=== PATIENT | male | born 1940 | race Caucasian/White ===

== ENCOUNTER 2017-11-12 09:13 | Day surgery (SDC) | payer MEDICARE, OTHER, SELFPAY ==
[2017-10-31 12:46] VITALS: BMI 21.5
[2017-11-12] VITALS (9 sets, daily range): BP systolic 101–133; BP diastolic 58–76; PULSE 64–121; RESP 11–16; TEMP 36.1–36.5; O2SAT 96–99; BMI 21.5
[2017-11-12] MEDS: LACTATED RINGERS 1,000 ML 42 ML IV (09:55)
[2017-11-12] MEDS: CEFAZOLIN 2 GM/100 ML FROZ.PIGGY IV (10:19)
--- NOTE | 2017-11-12 10:29 | PM.PREOP ---
Pre-operative Note Interval Note Pre-op Check: Yes History & Physical Reviewed by Physician Changes: No
--- NOTE | 2017-11-12 10:44 | SUR.OPER ---
Supine on padded OR bed, head on pillow, arms secured on padded arm boards at <90 degrees abduction, legs uncrossed, safety belt at thigh, tape over blanket over lower legs.
[2017-11-12] MEDS: BUPIVACAINE 0.5% (PF) VIAL 30 ML INJ (10:52)
[2017-11-12] MEDS: LIDOCAINE 1% W/EPI INJ 20 ML INJ (10:52)
[2017-11-12] MEDS: SODIUM CHLORIDE IRRIG SOLUTION 250 ML, CEFAZOLIN VIAL 1 GM IRR (10:52)
--- NOTE | 2017-11-12 11:23 | PM.OP.1 ---
Operative Date/Time/Diagnoses Date of procedure: 11/12/17 Time of procedure: 11:23 Pre-op diagnosis: Large right inguinal hernia Post-op diagnosis: same Procedure & Clinicians Procedure: Right inguinal hernia repair Same procedure as scheduled: Yes Indications: Large right inguinal hernia descending into the right scrotum Surgeon: Missy Esqueda Click Yes if Unassisted: Yes Anesthesia Type: General (Emanuel) and Local Operative Notes Findings: Large indirect right inguinal hernia Closure Type: primary Specimen(s): none sent Applied: implant(s) (Large Pro Loop plug and patch mesh implant) Estimated Blood Loss (mL): 10 Procedure in detail: After obtaining informed consent the patient was brought to the operating room and placed in the supine position on the operating table. Following successful induction of general endotracheal anesthesia, appropriate padding of all bony prominences, and a placement of appropriate monitors, the left groin is prepped and draped in a standard surgical fashion. A timeout was held per protocol. We began the procedure by infiltrating a mixture of local anesthetics medial to the anterior superior iliac spine on the right. Following this, an incision was fashioned in the right groin superior and lateral to the left pubic tubercle. This area was infiltrated with local anesthetic to create a field block. A skin incision was created here and carried down through the skin and subcutaneous tissue to reveal Aditi's fascia below. Aditi's fascia was divided sharply revealing the external oblique aponeurosis below. More local anesthetic was infiltrated in the aponeurosis and it was opened in the direction of its fibers. The spermatic cord and its contents were surrounded and retracted gently using a Weskan drain. The hernia sac was identified in the superior medial position and carefully dissected free from the cord structures. This was carefully placed back into the abdominal cavity without injury. A large portion of PROloop mesh was chosen for the repair. The plug was soaked in Ancef solution and deployed into the defect in the internal ring. This was sewn into place with interrupted Vicryl sutures in 2 positions. The overlying mesh layer was sewn to the pubic tubercle with an air knot of Vicryl suture. The lateral leaflets were then carefully placed around the spermatic cord and sewn together with another suture. Tags of the overlying mesh were then tucked under the external oblique aponeurosis. The wound was checked for hemostasis and irrigated with Ancef-containing solution. The edges of the external oblique aponeurosis were approximated and closed with a running Vicryl suture. The wound was irrigated once again and Aditi's fascia was closed with a running suture. Monocryl sutures were placed in the skin. All sponge, needle, and instrument counts were correct at the conclusion of the case. The patient was allowed to awaken from anesthesia without difficulty and taken to the post anesthesia care unit in good condition. Complications: none Condition: stable Disposition: PACU Plan for aftercare: 1. Discharge to home 2. Follow up with me in 2 week
--- NOTE | 2017-11-12 12:07 | SUR.PHASEI ---
dr luu aware of irregular hr. no new orders recieved. pt instructed to follow up with pcp. made aware as well.
--- NOTE | 2017-11-12 12:20 | SUR.PHASEII ---
and daughter brought in to see pt, given prescription went to pharmacy to fill. incision remains intacct with ice pack in plae.
--- NOTE | 2017-11-12 14:27 | SUR.PHASEII ---
1300 Pt sat on the side of the stretcher. Denied dizziness or feeling light headed. Pt left to dress independently. Then patient found kneeling on the floor. Patient reported right leg was weak and gave out. Denied feeling light headed or dizzy. Small area of peeled, superficial skin loss to Rt. knee. Pt assisted back to bed. Dr. Esqueda called in her office and notified of patient's status. Pt to go to the ER per Dr. Esqueda. Pt notified and agreeable to transfer to the ER. Transferred by stretcher, report given in ER. Pt's belongings bag with patient. Patient's family notified regarding fall and transfer to the ER.
== END 2017-11-12 13:15 | disposition home or self-care (01) ==
PROVIDERS: PCP Family Medicine; Visit Provider Surgery
PROC: (CPT 49505; principal; 2017-11-12 10:45)
DX: K40.90 Unilateral inguinal hernia, without obstruction or gangrene, not specified as recurrent (principal); F17.210 Nicotine dependence, cigarettes, uncomplicated; I10 Essential (primary) hypertension; E78.5 Hyperlipidemia, unspecified
CPT/HCPCS: 49505; 36591; 71045; 80053; 82550; 82553; 83690; 84484; 85025; 85610; 85730; 93005; 93010; 93041; 99283; C1781; J0690; J2405; J2704; J3010

== ENCOUNTER 2017-11-12 13:29 | Emergency (ER) | payer MEDICARE, OTHER, SELFPAY ==
[2017-11-12 13:30] VITALS: BP 118/72; PULSE 69; RESP 11; TEMP 37; O2SAT 100
--- NOTE | 2017-11-12 13:35 | DI.RAD.S_ITS ---
PROCEDURE: XR CHEST 1V INDICATIONS: chest pain TECHNIQUE: One view of the chest was acquired. COMPARISON: None. FINDINGS: Surgical changes and devices: None. Lungs and pleura: No pleural effusions or pneumothorax. Lungs are clear. Mediastinum: Large hiatal hernia. Mediastinal contours otherwise appear normal. Heart size is normal. Bones and chest wall: No suspicious bony lesions. Overlying soft tissues appear unremarkable. IMPRESSION: Large hiatal hernia. Dictated by: Angie He M.D. on 11/12/2017 at 13:55 Approved by: Angie He M.D. on 11/12/2017 at 13:55
--- NOTE | 2017-11-12 13:40 | ED.WEAKNESS ---
HPI - Weakness General Chief complaint: Weakness Stated complaint: AFIB Time Seen by Provider: 11/12/17 13:35 Source: patient Mode of arrival: ambulatory Limitations: no limitations History of Present Illness HPI Narrative: Patient is a 77-year-old male who presents all from postop. He had an outpatient right inguinal hernia repair today. At the time of discharge his IV was pulled and he went to stand up and he could not put weight on his right leg. The noticed that he was in and out of AFib he has no history of atrial fibrillation. He has no chest pain no heart palpitations shortness of breath. He says that his right leg feels numb. Although he is able to move his toes and bend his knee. MD Complaint: numbness (Right leg) Related Data Home Medications Medication Instructions Recorded Confirmed [id number]-ummpnto-min 1 tab PO DAILY 10/30/17 11/12/17 3,300 unit-5 mg-200mg-75 unit tablet ER Previous Rx's Medication Instructions Recorded aspirin 81 mg tablet,delayed 81 mg PO DAILY #90 tab 07/29/17 release losartan 100 mg tablet 100 mg PO QDAY #90 tab 07/29/17 omega-3 fatty acids 1,000 mg 1,000 mg PO DAILY #30 cap 07/29/17 capsule oxycodone-acetaminophen 1 tab PO Q3H PRN #20 tab MDD 6 11/12/17 Allergies Allergy/AdvReac Type Severity Reaction Status Date / Time venom-honey bee Allergy Severe swelling Verified 11/12/17 14:01 [bee venom (honey bee)] at side Review of Systems Review of Systems All systems reviewed & are unremarkable except as noted in HPI and below Constitutional Denies chills, Denies fever(s), Denies lethargy and Denies weakness Cardiovascular Reports as per HPI, Denies dyspnea and Denies dyspnea on exertion Respiratory Denies cough, Denies dyspnea, Denies dyspnea on exertion and Denies wheezing Gastrointestinal Gastrointestinal: Reports as per HPI, Denies abdominal pain, Denies change in bowel habits, Denies diarrhea, Denies nausea and Denies vomiting Musculoskeletal Reports system reviewed and no additional complaints, except as docu Integumentary/Breasts Denies pruritus, Denies erythema, Denies rash and Denies wounds Neurologic Reports lack of coordination, Denies seizure-like activity and Denies weakness Allergic/Immunologic Denies wheezing [facility] Medical History Right inguinal hernia (Chronic) Essential hypertension (Chronic 01/26/15) Mixed hyperlipidemia (Chronic 01/26/15) Hyperlipidemia (Chronic ~2009) Hypertension (Chronic ~2009) Surgical History S/P hernia repair (Chronic) H/O left inguinal hernia repair (Acute) H/O right inguinal hernia repair (Acute) History of colonoscopy (Acute) Social History marital status: household members: spouse Smoking Status: Current every day smoker alcohol intake: current substance use type: does not use Exam Initial Vital Signs Initial Vital Signs: Vital Signs Temperature 98.6 F 11/12/17 13:30 Pulse Rate 69 11/12/17 13:30 Respiratory Rate 11 L 11/12/17 13:30 Blood Pressure 118/72 11/12/17 13:30 Pulse Oximetry 100 11/12/17 13:30 GENERAL: Alert well-appearing elderly male in no acute distress HEENT: Head atraumatic,EOMI, pupils reactive, CARDIOVASCULAR: Regular rate and rhythm without murmurs, rubs or gallops. RESPIRATORY: Breath sounds equal bilaterally, no wheezes rales or rhonchi. ABDOMEN: Soft, nontender. Normoactive bowel sounds all 4 quadrants. No guarding or rebound. Incision right groin is closed no erythema no drainage no sign of infection EXTREMITIES: Normal range of motion, no clubbing or edema. Neurovascularly intact. Strong right femoral pulse good right distal pedal pulse. He does obviously have some weakness and unable to lift his right leg up off the gurney. The left leg is strong. He says that it feels numb. NEUROLOGICAL: Alert and oriented x4.Normal gait and speech. Cranial nerves II through XII grossly intact. SKIN: Warm, dry, no laceration, no petechiae, no rashes or lesions. Course Orders Ordered: ED Orders 11/12/17 13:35 XR chest 1V Stat Complete Blood Count AUTO DIFF Stat Comprehensive Metabolic Panel Stat Lipase Stat Partial Thromboplastin Time Stat Prothrombin Time INR Stat Troponin & CK Cardiac Panel Stat Vital Signs - 8 hr 11/12/17 13:30 Temperature 98.6 F Pulse Rate 69 Respiratory Rate 11 L Blood Pressure 118/72 Pulse Oximetry 100 MDM - Weakness Lab Data Attestation: I reviewed the patient's lab results. Result diagrams: 11/12/17 13:29 11/12/17 13:29 Lab Results 11/12/17 11/12/17 11/12/17 Range/Units 13:29 13:29 13:29 WBC 8.6 (4.5-11.0) X10^3/uL RBC 3.75 L (4.5-5.9) X10^6/uL Hgb 12.8 L (13.5-17.5) g/dL Hct 38.2 L (41-53) % MCV 102.0 H (80-100) fL MCH 34.1 H (26-34) PG MCHC 33.4 (30-36) % RDW 14.5 (11.6-14.8) % Plt Count 192 (150-400) X10^3/uL Neut % (Auto) 70.0 (50-75) % Lymph % (Auto) 18.3 L (25-40) % [place] % (Auto) 10.1 (3-14) % Eos % (Auto) 1.0 L (2-4) % Baso % (Auto) 0.6 (0-2) % Neut # (Auto) 6000 H (9028-1015) /uL PT 11.6 (10.1-12.7) SECONDS INR 1.1 (0.9-1.3) APTT 30 (26.4-36.2) SECONDS Sodium 142 (137-145) mmol/L Potassium 4.1 (3.4-5.1) mmol/L Chloride 105 (98-107) mmol/L Carbon Dioxide 26 (22-32) mmol/L BUN 21 H (9-20) mg/dL Creatinine 1.10 (0.66-1.25) mg/dL Estimated GFR > 60.0 (>60) mL/min BUN/Creatinine Ratio 19.1 (6-22) Glucose 119 H (80-110) mg/dL Calcium 9.4 (8.4-10.2) mg/dL Total Bilirubin 0.5 (0.2-1.3) mg/dL AST 29 (17-59) IU/L ALT 22 (21-72) IU/L Alkaline Phosphatase 86 (38-126) U/L Total Creatine Kinase 64 (55-170) U/L Troponin I < 0.012 (0.01-0.034) ng/mL Total Protein 7.6 (6.3-8.2) g/dL Albumin 4.2 (3.5-5.0) g/dL Globulin 3.4 (1.7-4.1) g/dL Albumin/Globulin Ratio 1.2 (1.0-2.8) Lipase 95 (23-300) U/L Imaging Data Chest x-ray: Radiologist's impression: PROCEDURE: XR CHEST 1V INDICATIONS: chest pain TECHNIQUE: One view of the chest was acquired. COMPARISON: None. FINDINGS: Surgical changes and devices: None. Lungs and pleura: No pleural effusions or pneumothorax. Lungs are clear. Mediastinum: Large hiatal hernia. Mediastinal contours otherwise appear normal. Heart size is normal. Bones and chest wall: No suspicious bony lesions. Overlying soft tissues appear unremarkable. IMPRESSION: Large hiatal hernia. Dictated by: Angie He M.D. on 11/12/2017 at 13:55 ECG Data Attestation: I personally reviewed and interpreted this ECG as follows: Prior ECG tracings: not available for review Interpretation: Normal sinus rhythm rate [address] changes normal intervals MDM Narrative Medical decision making narrative: I have discussed case with Dr. Mukherjee he states that she did use a a lot of all local anesthesia right in the area. Likely that is why his leg is numb. His it should wear off the next couple of hours, this is normal postoperative. There able to get home and into the house safely they recommend resting until it wears off. I have discussed all of this with patient and patient's family. They have a wheelchair and they are able to get him home safely. All questions have been addressed I feel ready and able to go home. 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 This can last for a couple of hours, lay in bed or stay sitting *Continue to take medications as directed *Follow up with your primary care provider in 2-3 days, follow surgery instructions *Return to ER if you should have any new, worsening or concerning symptoms Prescriptions: No Action omega-3 fatty acids [Fish Oil Concentrate] 1,000 mg capsule 1,000 mg PO DAILY Qty: 30 RF: 0 losartan 100 mg tablet 100 mg PO QDAY Qty: 90 RF: 3 aspirin [Adult Low Dose Aspirin] 81 mg tablet,delayed release (DR/EC) 81 mg PO DAILY Qty: 90 RF: 0 [id number]-R-zztses-fpvsxfj-min [ICaps] [id number],431-9-191-75 kyab-pb-om-unit tablet extended release 1 tab PO DAILY RF: 0 oxycodone-acetaminophen 5-325 mg tablet 1 tab PO Q3H MDD 6 PRN (Reason: pain) Qty: 20 RF: 0 Referrals: Adolfo Copeland MD [Primary Care Provider] - Missy Esqueda MD [Physician] -
[2017-11-12 13:45] LABS: Add Manual Diff / Slide Review NO; Basophils Percent Auto 0.6 % (0-2); Hematocrit 38.2 % (41-53); Hemoglobin 12.8 g/dL (13.5-17.5); Lymphocytes Percent Auto 18.3 % (25-40); Mean Corpuscular HGB Conc 33.4 % (30-36); Mean Corpuscular Hemoglobin 34.1 PG (26-34); Monocytes Percent Auto 10.1 % (3-14); Neutrophils Absolute Auto 6000 /uL (3000-5900); Platelet Count 192 X10^3/uL (150-400); Red Blood Cell Count 3.75 X10^6/uL (4.5-5.9); Red Cell Distribution Width 14.5 % (11.6-14.8); White Blood Cell Count 8.6 X10^3/uL (4.5-11.0)
[2017-11-12 13:57] LABS: INR 1.1 (0.9-1.3); Prothrombin Time 11.6 SECONDS (10.1-12.7)
[2017-11-12 14:00] LABS: PTT Partial Thromboplastin Tim 30 SECONDS (26.4-36.2)
[2017-11-12 14:01] LABS: Alanine Aminotransferase 22 IU/L (21-72); Albumin 4.2 g/dL (3.5-5.0); Albumin Globulin Ratio 1.2 (1.0-2.8); Alkaline Phosphatase 86 U/L (38-126); Aspartate Aminotransferase 29 IU/L (17-59); BUN Creatinine Ratio 19.1 (6-22); Bilirubin Total 0.5 mg/dL (0.2-1.3); Blood Urea Nitrogen 21 mg/dL (9-20); Calcium 9.4 mg/dL (8.4-10.2); Carbon Dioxide 26 mmol/L (22-32); Chloride 105 mmol/L (98-107); Creatine Kinase 64 U/L (55-170); Estimated Glomerular Filt Rate > 60.0 mL/min (>60); Globulin 3.4 g/dL (1.7-4.1); Glucose 119 mg/dL (80-110); HEMOLYSIS < 15 (0-50); Lipase 95 U/L (23-300); Potassium 4.1 mmol/L (3.4-5.1); Sodium 142 mmol/L (137-145); Total Protein 7.6 g/dL (6.3-8.2)
[2017-11-12 14:15] LABS: Troponin I < 0.012 ng/mL (0.01-0.034)
[2017-11-12 14:34] VITALS: BP 113/67; RESP 12
== END 2017-11-12 14:53 | disposition home or self-care (01) ==
PROVIDERS: Emergency Provider Emergency Medicine; PCP Family Medicine
DX: R53.1 Weakness (principal)
CPT/HCPCS: 36591; 71045; 80053; 82550; 82553; 83690; 84484; 85025; 85610; 85730; 93041; 99283

== ENCOUNTER → 2018-09-25 09:01 | Outpatient (CLI) | payer MEDICARE, OTHER, SELFPAY ==
[2018-09-25 10:09] LABS: Alanine Aminotransferase 20 IU/L (21-72); Albumin Globulin Ratio 1.3 (1.0-2.8); Alkaline Phosphatase 92 U/L (38-126); Aspartate Aminotransferase 34 IU/L (17-59); BUN Creatinine Ratio 22.7 (6-22); Bilirubin Total 0.8 mg/dL (0.2-1.3); Blood Urea Nitrogen 25 mg/dL (9-20); Calcium 9.4 mg/dL (8.4-10.2); Carbon Dioxide 22 mmol/L (22-32); Chloride 110 mmol/L (98-107); Cholesterol 204 mg/dL (140-199); Estimated Glomerular Filt Rate > 60.0 mL/min (>60); Globulin 3.2 g/dL (1.7-4.1); Glucose 96 mg/dL (80-110); HDL Cholesterol 48 mg/dL (40-60); HEMOLYSIS 20 (0-50); LDL Cholesterol Calculated 138 mg/dL (<100); Potassium 4.4 mmol/L (3.4-5.1); Sodium 139 mmol/L (137-145); Total Protein 7.2 g/dL (6.3-8.2); Triglycerides 91 mg/dL (35-150)
[2018-09-25 12:26] LABS: Creatinine Urine Random 135.5 mg/dL
[2018-09-25 12:33] LABS: Microalbumi Creatinin Ratio Ur 16.9 ug/mg CR (<30); Microalbumin Urine Random 2.3 mg/dL (0-1.6)
== END ==
PROVIDERS: PCP Physician Assistant; Visit Provider Physician Assistant
DX: E78.2 Mixed hyperlipidemia (principal); I10 Essential (primary) hypertension; Z51.81 Encounter for therapeutic drug level monitoring
CPT/HCPCS: 36415; 80053; 80061; 82043; 82570

== ENCOUNTER 2020-02-16 17:04 | Inpatient (IN) | payer MEDICARE, OTHER, SELFPAY ==
[2020-02-16] VITALS (33 sets, daily range): BP systolic 148–181; BP diastolic 75–93; PULSE 51–69; RESP 20–35; TEMP 36.4–36.9; O2SAT 90–100; BMI 22.4
--- NOTE | 2020-02-16 17:26 | DI.RAD.S_ITS ---
PROCEDURE: XR CHEST 1V INDICATIONS: Shortness of breath TECHNIQUE: One view of the chest was acquired. COMPARISON: [facility], CR, XR CHEST 1V, 11/12/2017, 13:43. FINDINGS: Surgical changes and devices: None. Lungs and pleura: Large left-sided pleural effusion. Left-sided lung consolidation. Mediastinum: Mediastinal contours appear normal. Heart is enlarged. Large hiatal hernia is noted Bones and chest wall: No suspicious bony lesions. Overlying soft tissues appear unremarkable. IMPRESSION: Large left-sided pleural effusion. Left lung consolidation which could represent compressive atelectasis or pneumonia. Dictated by: Judy Smith MD, PhD on 02/16/2020 at 18:19 Approved by: Judy Smith MD, PhD on 02/16/2020 at 18:20
--- NOTE | 2020-02-16 17:28 | ED_ITS ---
HPI - General Adult General Chief complaint: Shortness of Breath/Dyspnea Stated complaint: trouble breathing, cant walk right Time Seen by Provider: 02/16/20 17:24 Source: patient and family Mode of arrival: Wheelchair Related Data Home Medications Medication Instructions Recorded Confirmed sotalol 80 mg tablet See Rx Instructions PO BID tab 12/07/18 12/07/18 Previous Rx's Medication Instructions Recorded warfarin 3 mg tablet See Rx Instructions PO DAILY #180 12/21/18 tab Allergies Allergy/AdvReac Type Severity Reaction Status Date / Time venom-honey bee Allergy Severe swelling Verified 12/07/18 11:45 [bee venom (honey bee)] at side Patient History Medical History (Updated 03/30/19 @ 16:36 by Jet Mayo RN) Atrial flutter with rapid ventricular response (~05/25/18) Essential hypertension (01/26/15) Hyperlipidemia (~2009) Hypertension (~2009) senior living current use of anticoagulant therapy Mixed hyperlipidemia (01/26/15) Right inguinal hernia Surgical History (Updated 06/15/18 @ 08:07 by Nicki Vargas PA-C) H/O left inguinal hernia repair H/O right inguinal hernia repair History of colonoscopy S/P hernia repair Family History Father No problems noted. Mother No problems noted. Social History marital status: household members: spouse Smoking Status: Current every day smoker Tobacco: How many years used: 60 quit status: considering quitting (I tried quitting but I turn into a monster, so i started again Given smoking cessation handout.) second hand exposure: No alcohol intake: current (a beer only when the weather is hot.) substance use type: does not use Smoking Status: Current every day smoker alcohol intake frequency: a few times a week Substance Use Type: does not use Exam Initial Vital Signs Initial Vital Signs: Vital Signs Temperature 98.4 F 02/16/20 17:04 Pulse Rate 69 02/16/20 17:04 Respiratory Rate 24 02/16/20 17:04 Blood Pressure 170/84 H 02/16/20 17:04 Pulse Oximetry 90 L 02/16/20 17:04 Course Orders Ordered: ED Orders 02/16/20 17:25 Blood Culture Stat COVID19 Stat Complete Blood Count AUTO DIFF Stat Comprehensive Metabolic Panel Stat Lactate (Lactic Acid) Stat Lipase Stat 02/16/20 17:26 XR chest 1V Stat Magnesium Stat NT-proBNP (BNP-Adult 18+) Stat Partial Thromboplastin Time Stat Procalcitonin Stat Prothrombin Time INR Stat Troponin & CK Cardiac Panel Stat EKG-12 Lead Stat Discontinued Medications Nitroglycerin (Nitroglycerin Oint 1 Inch/Gm Oint...G.) 1 inch TOP NOW ONE Stop: 02/16/20 17:25 Vital Signs Vital signs: Vital Signs - 8 hr 02/16/20 17:04 Temperature 98.4 F Pulse Rate 69 Respiratory Rate 24 Blood Pressure 170/84 H Pulse Oximetry 90 L Discharge Plan Departure Prescriptions: No Action warfarin 3 mg tablet See Rx Instructions PO DAILY Qty: 180 RF: 3 sotalol 80 mg tablet See Rx Instructions PO BID RF: 0
[2020-02-16] MEDS: NITROGLYCERIN OINT 1 INCH/GM OINT...G. TOP (17:46)
[2020-02-16 17:55] LABS: COVID19 -Nasal RAPID Negative (Negative)
--- NOTE | 2020-02-16 17:57 | ED_ITS ---
HPI - SOB/Dyspnea General Chief Complaint: Shortness of Breath/Dyspnea Stated Complaint: trouble breathing, cant walk right Time Seen by Provider: 02/16/20 17:24 Source: patient and family Mode of arrival: Wheelchair Limitations: no limitations History of Present Illness HPI Narrative: 79-year-old male daily smoker with history of paroxysmal AFib formally on Coumadin but recently stopped, presents with a chief complaint of increasing gradual weakness over the past month with rather significant shortness of breath over the past few days. He has had no runny nose, sore throat, fever, chills or cough. He becomes profoundly short of breath with any exertion or lying flat. He has had decreased appetite and energy and has been laying around more than normal, his legs have become a bit swollen which is not normal for him. A few months ago and was apparently encouraged to stop taking his Coumadin and currently is only taking sotalol and B12. His PCP is Dr. Sam JUAREZ Complaint: shortness of breath Onset (ago): day(s) Severity: moderate Consistency/Duration: constant Relieving factors: rest Exacerbating factors: lying flat and exertion Known history of: COPD Associated symptoms: denies other symptoms Related Data Home oxygen amount: none Home Medications Medication Instructions Recorded Confirmed sotalol 80 mg tablet See Rx Instructions PO BID tab 12/07/18 02/16/20 Allergies Allergy/AdvReac Type Severity Reaction Status Date / Time venom-honey bee Allergy Severe swelling Verified 12/07/18 11:45 [bee venom (honey bee)] at side Review of Systems Constitutional Constitutional: Denies chills, Denies fatigue, Denies fever(s), Denies frequent falls, Reports lethargy and Reports weakness Eyes Eyes: Denies change in vision, Denies eye discharge, Denies irritation and Denies loss of vision ENT Ears, Nose, Mouth, and Throat: Denies change in voice, Denies dizziness, Denies neck pain, Denies sore throat and Denies throat swelling Cardiovascular Cardiovascular: Denies chest pain, Denies irregular heart rhythm, Denies lightheadedness, Denies palpitations, Reports dyspnea, Reports dyspnea on exertion and Reports orthopnea Respiratory Respiratory: Denies cough, Reports dyspnea, Reports dyspnea on exertion and Denies wheezing Gastrointestinal Gastrointestinal: Denies abdominal pain, Denies change in bowel habits, Denies diarrhea, Denies nausea and Denies vomiting Musculoskeletal Musculoskeletal: Denies neck pain and Denies numbness Integumentary/Breasts Skin/Breast: Denies pruritus, Denies erythema, Denies rash and Denies wounds Neurologic Neurologic: Denies behavioral changes, Denies confusion, Denies dizziness, Denies frequent falls, Denies loss of vision, Denies numbness and Reports weakness Psychiatric Psychiatric: Denies anxiety, Denies behavioral changes, Denies confusion, Denies depression, Denies homicidal ideation and Denies suicidal ideation Endocrine Endocrine: Denies fatigue, Denies flushing and Denies palpitations Hematologic/Lymphatic Hematologic/Lymphatic: Denies easy bruising Allergic/Immunologic Allergic/Immunologic: Denies urticaria, Denies throat swelling and Denies wheezing Patient History Medical History Atrial flutter with rapid ventricular response (~05/25/18) Essential hypertension (01/26/15) Hyperlipidemia (~2009) Hypertension (~2009) prison current use of anticoagulant therapy Mixed hyperlipidemia (01/26/15) Right inguinal hernia Surgical History H/O left inguinal hernia repair H/O right inguinal hernia repair History of colonoscopy S/P hernia repair Family History Father No problems noted. Mother No problems noted. Social History marital status: household members: spouse Smoking Status: Current every day smoker Tobacco: How many years used: 60 quit status: considering quitting (I tried quitting but I turn into a monster, so i started again Given smoking cessation handout.) second hand exposure: No alcohol intake: current substance use type: does not use Smoking Status: Current every day smoker alcohol intake frequency: a few times a week Substance Use Type: does not use Exam Narrative Exam Narrative: GENERAL: [79] year old patient appears stated age. He appears weak, profoundly short of breath, initial Spo2 in the 80s. Very hard of hearing HEAD: Atraumatic. Normocephalic. EYES: Pupils equal round and reactive. Extraocular motions intact. No scleral icterus. No injection or drainage. ENT: Nose without bleeding, purulent drainage. Throat without erythema, tonsillar hypertrophy or exudate. Airway patent. NECK: Trachea midline. Non tender CARDIOVASCULAR: Regular rate and rhythm without murmurs, gallops, or rubs. RESPIRATORY: No significant work of breathing at rest. Very minimal lung sounds on the left. GASTROINTESTINAL: Abdomen soft, non-tender, nondistended. EXTREMITIES: 2+ pitting edema B/L LE BACK: Nontender without deformity or crepitance. No flank tenderness. NEURO: AOx3. SKIN: No rash or erythema of visible areas Initial Vital Signs Initial Vital Signs: Vital Signs Temperature 98.4 F 02/16/20 17:04 Pulse Rate 69 02/16/20 17:04 Respiratory Rate 24 02/16/20 17:04 Blood Pressure 170/84 H 02/16/20 17:04 Pulse Oximetry 90 L 02/16/20 17:04 Course Orders Ordered: ED Orders 02/16/20 17:25 COVID19 Stat 02/16/20 17:26 XR chest 1V Stat EKG-12 Lead Stat 02/16/20 17:50 Blood Culture Stat 02/16/20 18:06 Complete Blood Count AUTO DIFF Stat Comprehensive Metabolic Panel Stat Lactate (Lactic Acid) Stat Lipase Stat Magnesium Stat NT-proBNP (BNP-Adult 18+) Stat Partial Thromboplastin Time Stat Procalcitonin Stat Prothrombin Time INR Stat Troponin & CK Cardiac Panel Stat 02/16/20 18:28 CT chest w con Stat Acetaminophen (Acetaminophen 325 Mg Tablet) 650 mg PO Q6HR PRN PRN Reason: Fever/Mild Pain (1-3) Aspirin (Aspirin Ec 81 Mg Tablet) 81 mg PO DAILY [facility] Azithromycin (Azithromycin 250 Mg Tablet) 500 mg PO DAILY [facility] Enoxaparin Sodium (Enoxaparin 40 Mg/0.4 Ml Syringe) 40 mg SUBCUT DAILY [facility] Ceftriaxone Sodium/Dextrose (Rocephin) 1 gm in 50 mls @ 100 mls/hr IV Q24H [facility] Potassium Chloride 40 meq/ (Sodium Chloride) 520 mls @ 130 mls/hr IV NOW ONE Stop: 02/17/20 03:28 Potassium Chloride (Potassium Chloride 20 Meq Tab) 40 meq PO NOW [facility] Sotalol HCl (Sotalol 80 Mg Tablet) 20 mg PO BID JOSE ANTONIO Discontinued Medications Furosemide (Furosemide 20 Mg/2 Ml Vial) 40 mg IV NOW ONE Stop: 02/16/20 23:15 Last Admin: 02/17/20 00:49 Dose: 40 mg Documented by: CAL Ceftriaxone Sodium/Dextrose (Rocephin) 1 gm in 50 mls @ 100 mls/hr IV NOW ONE Stop: 02/16/20 22:01 Last Infusion: 02/16/20 22:47 Dose: 0 mls/hr Documented by: Infusion: 02/16/20 22:47 Dose: 100 mls/hr Documented by: Infusion: 02/16/20 21:51 Dose: 0 mls/hr Documented by: Admin: 02/16/20 21:51 Dose: 100 mls/hr Documented by: JEFF Azithromycin 500 mg/ Dextrose 250 mls @ 250 mls/hr IV NOW ONE Stop: 02/16/20 21:33 Last Admin: 02/16/20 23:14 Dose: 250 mls/hr Documented by: TOBIN Nitroglycerin (Nitroglycerin Oint 1 Inch/Gm Oint...G.) 1 inch TOP NOW ONE Stop: 02/16/20 17:25 Last Admin: 02/16/20 17:46 Dose: 1 inch Documented by: JEFF Vital Signs Vital signs: Vital Signs - 8 hr 02/16/20 17:38 02/16/20 17:46 02/16/20 17:48 Pulse Rate 51 L 62 63 Respiratory Rate 31 H 28 H Blood Pressure 161/78 H 161/78 H Pulse Oximetry 100 100 02/16/20 17:50 02/16/20 18:00 02/16/20 18:10 Pulse Rate 54 L 55 L 64 Respiratory Rate 25 H 35 H Blood Pressure 166/75 H 160/78 H 154/85 H Pulse Oximetry 100 98 98 02/16/20 18:20 02/16/20 18:30 02/16/20 18:40 Pulse Rate 53 L 56 L 56 L Respiratory Rate 29 H 25 H 27 H Blood Pressure 165/79 H 152/78 H 158/78 H Pulse Oximetry 98 97 97 02/16/20 18:50 02/16/20 19:00 02/16/20 19:10 Pulse Rate 55 L 53 L 53 L Respiratory Rate 29 H 25 H 31 H Blood Pressure 154/77 H 148/75 H 156/76 H Pulse Oximetry 95 95 94 02/16/20 19:20 02/16/20 19:26 02/16/20 19:30 Pulse Rate 57 L 62 63 Respiratory Rate 32 H 33 H 29 H Blood Pressure 158/79 H 174/86 H 177/86 H Pulse Oximetry 94 94 95 02/16/20 19:41 02/16/20 19:50 02/16/20 20:00 Pulse Rate 61 52 L 52 L Respiratory Rate 29 H 26 H 22 Blood Pressure 177/81 H 175/86 H 162/79 H Pulse Oximetry 96 93 94 02/16/20 20:10 02/16/20 20:20 02/16/20 20:30 Pulse Rate 51 L 58 L 54 L Respiratory Rate 21 21 28 H Blood Pressure 161/83 H 174/83 H 164/84 H Pulse Oximetry 95 95 93 02/16/20 20:40 02/16/20 20:50 02/16/20 21:00 Pulse Rate 57 L 57 L 53 L Respiratory Rate 28 H 26 H 28 H Blood Pressure 165/86 H 173/82 H 181/85 H Pulse Oximetry 92 93 93 02/16/20 21:10 02/16/20 21:20 02/16/20 21:30 Pulse Rate 51 L 53 L 62 Respiratory Rate 27 H 27 H Blood Pressure 167/83 H 178/88 H 167/81 H Pulse Oximetry 93 96 02/16/20 21:40 Pulse Rate 53 L Respiratory Rate 26 H Blood Pressure 173/86 H Pulse Oximetry 96 MDM - SOB/Dyspnea Lab Data Result diagrams: 02/16/20 18:06 02/16/20 18:06 Labs: Lab Results 02/16/20 02/16/20 02/16/20 Range/Units 17:25 18:06 18:06 WBC 13.9 H (4.5-11.0) X10^3/uL RBC 3.58 L (4.5-5.9) X10^6/uL Hgb 10.3 L (13.5-17.5) g/dL Hct 32.9 L (41-53) % MCV 91.8 (80-100) fL MCH 28.8 (26-34) PG MCHC 31.3 (30-36) % RDW 17.2 H (11.6-14.8) % Plt Count 320 (150-400) X10^3/uL Neut % (Auto) 84.9 H (50-75) % Lymph % (Auto) 6.0 L (25-40) % Banks % (Auto) 9.0 (3-14) % Eos % (Auto) 0.0 L (2-4) % Baso % (Auto) 0.1 (0-2) % Neut # (Auto) 10045 H (8074-5715) /uL Lymph # (Auto) 800 L (2755-5665) /uL Banks # (Auto) 1300 H (0-900) /uL Eos # (Auto) 0 (0-450) /uL Baso # (Auto) 0 (0-100) /uL PT (10.1-12.7) SECONDS INR (0.9-1.3) APTT (26.4-36.2) SECONDS Sodium 146 H (137-145) mmol/L Potassium 3.3 L (3.4-5.1) mmol/L Chloride 107 (98-107) mmol/L Carbon Dioxide 33 H (22-32) mmol/L BUN 33 H (9-20) mg/dL Creatinine 1.05 (0.66-1.25) mg/dL Estimated GFR > 60.0 (>60) mL/min BUN/Creatinine Ratio 31.4 H (6-22) Glucose 122 H (80-110) mg/dL Lactate (0.7-2.1) mmol/L Calcium 8.9 (8.4-10.2) mg/dL Magnesium (1.6-2.3) mg/dL Total Bilirubin 0.5 (0.2-1.3) mg/dL AST 38 (17-59) IU/L ALT 20 (<50) IU/L Alkaline Phosphatase 101 (38-126) U/L Total Creatine Kinase (55-170) U/L CK-MB (CK-2) CK-MB (CK-2) Rel Index Troponin I (0.01-0.034) ng/mL NT-Pro-B Natriuret Pep (<450) pg/mL Total Protein 7.3 (6.3-8.2) g/dL Albumin 3.4 L (3.5-5.0) g/dL Globulin 3.9 (1.7-4.1) g/dL Albumin/Globulin Ratio 0.9 L (1.0-2.8) Lipase 182 (23-300) U/L Procalcitonin (<0.5) ng/mL COVID-19 PCR Negative (Negative) 02/16/20 02/16/20 02/16/20 Range/Units 18:06 18:06 18:06 WBC (4.5-11.0) X10^3/uL RBC (4.5-5.9) X10^6/uL Hgb (13.5-17.5) g/dL Hct (41-53) % MCV (80-100) fL MCH (26-34) PG MCHC (30-36) % RDW (11.6-14.8) % Plt Count (150-400) X10^3/uL Neut % (Auto) (50-75) % Lymph % (Auto) (25-40) % Banks % (Auto) (3-14) % Eos % (Auto) (2-4) % Baso % (Auto) (0-2) % Neut # (Auto) (6958-6086) /uL Lymph # (Auto) (2974-5989) /uL Banks # (Auto) (0-900) /uL Eos # (Auto) (0-450) /uL Baso # (Auto) (0-100) /uL PT 13.8 H (10.1-12.7) SECONDS INR 1.2 (0.9-1.3) APTT 27 (26.4-36.2) SECONDS Sodium (137-145) mmol/L Potassium (3.4-5.1) mmol/L Chloride (98-107) mmol/L Carbon Dioxide (22-32) mmol/L BUN (9-20) mg/dL Creatinine (0.66-1.25) mg/dL Estimated GFR (>60) mL/min BUN/Creatinine Ratio (6-22) Glucose (80-110) mg/dL Lactate 2.3 H (0.7-2.1) mmol/L Calcium (8.4-10.2) mg/dL Magnesium 2.6 H (1.6-2.3) mg/dL Total Bilirubin (0.2-1.3) mg/dL AST (17-59) IU/L ALT (<50) IU/L Alkaline Phosphatase (38-126) U/L Total Creatine Kinase 64 (55-170) U/L CK-MB (CK-2) TNP CK-MB (CK-2) Rel Index TNP Troponin I 0.018 (0.01-0.034) ng/mL NT-Pro-B Natriuret Pep 1760 H (<450) pg/mL Total Protein (6.3-8.2) g/dL Albumin (3.5-5.0) g/dL Globulin (1.7-4.1) g/dL Albumin/Globulin Ratio (1.0-2.8) Lipase (23-300) U/L Procalcitonin (<0.5) ng/mL COVID-19 PCR (Negative) 02/16/20 02/16/20 Range/Units 18:06 20:35 WBC (4.5-11.0) X10^3/uL RBC (4.5-5.9) X10^6/uL Hgb (13.5-17.5) g/dL Hct (41-53) % MCV (80-100) fL MCH (26-34) PG MCHC (30-36) % RDW (11.6-14.8) % Plt Count (150-400) X10^3/uL Neut % (Auto) (50-75) % Lymph % (Auto) (25-40) % Banks % (Auto) (3-14) % Eos % (Auto) (2-4) % Baso % (Auto) (0-2) % Neut # (Auto) (1205-6784) /uL Lymph # (Auto) (3306-3935) /uL Banks # (Auto) (0-900) /uL Eos # (Auto) (0-450) /uL Baso # (Auto) (0-100) /uL PT (10.1-12.7) SECONDS INR (0.9-1.3) APTT (26.4-36.2) SECONDS Sodium (137-145) mmol/L Potassium (3.4-5.1) mmol/L Chloride (98-107) mmol/L Carbon Dioxide (22-32) mmol/L BUN (9-20) mg/dL Creatinine (0.66-1.25) mg/dL Estimated GFR (>60) mL/min BUN/Creatinine Ratio (6-22) Glucose (80-110) mg/dL Lactate 1.8 (0.7-2.1) mmol/L Calcium (8.4-10.2) mg/dL Magnesium (1.6-2.3) mg/dL Total Bilirubin (0.2-1.3) mg/dL AST (17-59) IU/L ALT (<50) IU/L Alkaline Phosphatase (38-126) U/L Total Creatine Kinase (55-170) U/L CK-MB (CK-2) CK-MB (CK-2) Rel Index Troponin I (0.01-0.034) ng/mL NT-Pro-B Natriuret Pep (<450) pg/mL Total Protein (6.3-8.2) g/dL Albumin (3.5-5.0) g/dL Globulin (1.7-4.1) g/dL Albumin/Globulin Ratio (1.0-2.8) Lipase (23-300) U/L Procalcitonin < 0.05 (<0.5) ng/mL COVID-19 PCR (Negative) Imaging Data CT scan - chest: Radiologist's Impression: Chart [employer]er Diagnostics DATE TYPE STATUS REF RANGE/AUTHOR Hx 02/16/20 18:28 Judy Smith 02/16/20 17:26 Judy Smith 11/12/17 13:35 Angie He 11/12/17 09:13 Juan David Boyd 79, M0 1940 ADM [place], [facility] 175.26cm 69kg BMI: 22.5kg/m? Search Chart No Data to Display swelling at side ONSET 01/26/15 01/26/15 02/16/20 23:58 Juan David Boyd 79 M [address] Scan ReportSigned Patient: Boyd,Juan David LMR#: [id number]: 9Acct:[id number]/Sex: 79 / MDate of Service: 02/16/20Loc: EDAccession Number: [id number] Procedure: CT chest w con Ordering Provider: Juice Carballo D.O. PROCEDURE: CT CHEST W CON INDICATIONS: hypoxia, short of breath, effusion, hernia, infiltrate TECHNIQUE: After the administration of intravenous contrast, 5 mm thick sections acquired from the pulmonary apices to the posterior costophrenic angles. 1 mm axial lung, 5 mm thick coronal and sagittal reformats and 7 mm axial MIP were acquired. For radiation dose reduction, the following was used: automated exposure control, adjustment of mA and/or kV according to patient size. COMPARISON: [facility], CR, XR CHEST 1V, 02/16/2020, 18:01. FINDINGS: Image quality: Excellent. Lungs and pleura: Large left-sided pleural effusion stable in size compared chest x-ray obtained February 16, 2020 at 6:01 p.m. Right lung consolidation which could r epresent compressive atelectasis or pneumonia is stable compared to chest x-ray obtained February 16, 2020 at 6:01 p.m. Central and peripheral airways are patent and normal in caliber. Mediastinum: Heart size is normal. Atherosclerotic calcifications are noted in the aorta, great vessels and the coronary vasculature. No pericardial effusion. No mediastinal or hilar adenopathy by size criteria. Thoracic aorta and central pulmonary arteries are normal in size. Esophagus is normal in caliber. Large hiatal hernia is stable compared to the plain film radiograph obtained February 16, 2020. Bones and chest wall: No suspicious bony lesions. Chronic appearing T7, T8, and T9 vertebral body compression fractures. Acute/subacute appearing T10 compression fracture. No axillary or supraclavicular adenopathy by size criteria. Thyroid gland is within normal limits. Abdomen: Partially visualized exophytic mass involving the left kidney. Mass has a maximum diameter of 3.3 centimeters where visualized. 1.5 centimeter short axis periaortic retroperitoneal lymph node is noted concerning for metastatic disease. IMPRESSION: 1. Large left-sided pleural effusion. 2. Left lung consolidation compatible with compressive atelectasis versus pneumonia. 3. Large hiatal hernia. 4. Atherosclerosis including dense atherosclerotic calcifications in the coronary vasculature. 5. Partially visualized left renal mass concerning for renal cell carcinoma. 6. Left periaortic retroperitoneal lymphadenopathy concerning for metastatic disease. 7. 1.5 centimeter nodule in the right upper lobe. Finding concerning for metastatic disease or primary bronchogenic carcinoma. Recommend follow-up CT scan of the chest in 3-6 months based on criteria outlined below. 8. Acute/subacute appearing T10 compression fracture the results in approximately 30% loss of normal vertebral body height. Chronic appearing T7, T8 and T9 compression fractures. Fleischner Society criteria for SOLID lung nodule followup. Nodule size (mm)Low-risk patientHigh-risk patient<6 (single or multiple)No routine followup.Optional CT at 12 months. 6-8 (single or multiple)CT at 6-12 months, then optional CT at 18-24 mo.CT at 6-12 months, then CT at 18-24 months. >8 (single)CT at 3 months, PET-CT, or biopsy. Same as for low-risk pts. >8 (multiple)CT at 3-6 months, then optional CT at 18-24 mo.CT at 3-6 months, then CT at 18-24 months. Recommendations do not apply to lung cancer screening, patients with immunosuppression, or patients with known primary cancer. Dictated by: Judy Smith MD, PhD on 02/16/2020 at 19:47 Approved by: Judy Smith MD, PhD on 02/16/2020 at 19:56 MDM Narrative Medical decision making narrative: 79 obviously ill male with hypoxia and multiple elements of acute on chronic illness. He requires hospitalization for further stabilization, evaluation and treatment including thoracentesis and likely use of ABX which will surely help him from a pulmonary standpoint. In the bigger picture it would seem that our imaging tonight would suggest metastatic disease including possible renal cell carcinoma, lung involvement, and mediastinal lymph nodes. Discharge Plan Departure Patient Disposition: Admitted As Inpatient Clinical Impression: Hypoxia, Pleural effusion Pneumonia of left lung due to infectious organism Qualifiers: Lung location: unspecified part of lung Qualified Code(s): J18.9 - Pneumonia, unspecified organism Admit Date/Time: 02/16/20 21:42 Admit Provider: Lala Piña
[2020-02-16 18:16] LABS: Add Manual Diff / Slide Review NO; Basophils Absolute Auto 0 /uL (0-100); Basophils Percent Auto 0.1 % (0-2); Eosinophils Absolute Auto 0 /uL (0-450); Hematocrit 32.9 % (41-53); Hemoglobin 10.3 g/dL (13.5-17.5); Lymphocytes Absolute Auto 800 /uL (1100-4500); Mean Corpuscular HGB Conc 31.3 % (30-36); Mean Corpuscular Hemoglobin 28.8 PG (26-34); Mean Corpuscular Volume 91.8 fL (80-100); Monocytes Absolute Auto 1300 /uL (0-900); Neutrophils Absolute Auto 11800 /uL (1500-7000); Neutrophils Percent Auto 84.9 % (50-75); Platelet Count 320 X10^3/uL (150-400); Red Blood Cell Count 3.58 X10^6/uL (4.5-5.9); Red Cell Distribution Width 17.2 % (11.6-14.8); White Blood Cell Count 13.9 X10^3/uL (4.5-11.0)
[2020-02-16 18:24] LABS: INR 1.2 (0.9-1.3); Prothrombin Time 13.8 SECONDS (10.1-12.7)
[2020-02-16 18:26] LABS: PTT Partial Thromboplastin Tim 27 SECONDS (26.4-36.2)
[2020-02-16 18:28] LABS: Creatine Kinase 64 U/L (55-170); Lactate (Lactic Acid) 2.3 mmol/L (0.7-2.1); Magnesium 2.6 mg/dL (1.6-2.3)
--- NOTE | 2020-02-16 18:28 | DI.CT.S_ITS ---
PROCEDURE: CT CHEST W CON INDICATIONS: hypoxia, short of breath, effusion, hernia, infiltrate TECHNIQUE: After the administration of intravenous contrast, 5 mm thick sections acquired from the pulmonary apices to the posterior costophrenic angles. 1 mm axial lung, 5 mm thick coronal and sagittal reformats and 7 mm axial MIP were acquired. For radiation dose reduction, the following was used: automated exposure control, adjustment of mA and/or kV according to patient size. COMPARISON: [facility], CR, XR CHEST 1V, 02/16/2020, 18:01. FINDINGS: Image quality: Excellent. Lungs and pleura: Large left-sided pleural effusion stable in size compared chest x-ray obtained February 16, 2020 at 6:01 p.m. Right lung consolidation which could represent compressive atelectasis or pneumonia is stable compared to chest x-ray obtained February 16, 2020 at 6:01 p.m. Central and peripheral airways are patent and normal in caliber. Mediastinum: Heart size is normal. Atherosclerotic calcifications are noted in the aorta, great vessels and the coronary vasculature. No pericardial effusion. No mediastinal or hilar adenopathy by size criteria. Thoracic aorta and central pulmonary arteries are normal in size. Esophagus is normal in caliber. Large hiatal hernia is stable compared to the plain film radiograph obtained February 16, 2020. Bones and chest wall: No suspicious bony lesions. Chronic appearing T7, T8, and T9 vertebral body compression fractures. Acute/subacute appearing T10 compression fracture. No axillary or supraclavicular adenopathy by size criteria. Thyroid gland is within normal limits. Abdomen: Partially visualized exophytic mass involving the left kidney. Mass has a maximum diameter of 3.3 centimeters where visualized. 1.5 centimeter short axis periaortic retroperitoneal lymph node is noted concerning for metastatic disease. IMPRESSION: 1. Large left-sided pleural effusion. 2. Left lung consolidation compatible with compressive atelectasis versus pneumonia. 3. Large hiatal hernia. 4. Atherosclerosis including dense atherosclerotic calcifications in the coronary vasculature. 5. Partially visualized left renal mass concerning for renal cell carcinoma. 6. Left periaortic retroperitoneal lymphadenopathy concerning for metastatic disease. 7. 1.5 centimeter nodule in the right upper lobe. Finding concerning for metastatic disease or primary bronchogenic carcinoma. Recommend follow-up CT scan of the chest in 3-6 months based on criteria outlined below. 8. Acute/subacute appearing T10 compression fracture the results in approximately 30% loss of normal vertebral body height. Chronic appearing T7, T8 and T9 compression fractures. Fleischner Society criteria for SOLID lung nodule followup. Nodule size (mm)Low-risk patientHigh-risk patient<6 (single or multiple)No routine followup.Optional CT at 12 months. 6-8 (single or multiple)CT at 6-12 months, then optional CT at 18-24 mo.CT at 6-12 months, then CT at 18-24 months. >8 (single)CT at 3 months, PET-CT, or biopsy. Same as for low-risk pts. >8 (multiple)CT at 3-6 months, then optional CT at 18-24 mo.CT at 3-6 months, then CT at 18-24 months. Recommendations do not apply to lung cancer screening, patients with immunosuppression, or patients with known primary cancer. Dictated by: Judy Smith MD, PhD on 02/16/2020 at 19:47 Approved by: Judy Smith MD, PhD on 02/16/2020 at 19:56
[2020-02-16 18:30] LABS: Alanine Aminotransferase 20 IU/L (<50); Albumin 3.4 g/dL (3.5-5.0); Albumin Globulin Ratio 0.9 (1.0-2.8); Alkaline Phosphatase 101 U/L (38-126); Aspartate Aminotransferase 38 IU/L (17-59); BUN Creatinine Ratio 31.4 (6-22); Bilirubin Total 0.5 mg/dL (0.2-1.3); Blood Urea Nitrogen 33 mg/dL (9-20); Calcium 8.9 mg/dL (8.4-10.2); Carbon Dioxide 33 mmol/L (22-32); Chloride 107 mmol/L (98-107); Estimated Glomerular Filt Rate > 60.0 mL/min (>60); Globulin 3.9 g/dL (1.7-4.1); Glucose 122 mg/dL (80-110); HEMOLYSIS 30 (0-50); Lipase 182 U/L (23-300); Potassium 3.3 mmol/L (3.4-5.1); Sodium 146 mmol/L (137-145); Total Protein 7.3 g/dL (6.3-8.2)
[2020-02-16 18:42] LABS: NT-proBNP (BNP-Adult 18+) 1760 pg/mL (<450); Troponin I 0.018 ng/mL (0.01-0.034)
[2020-02-16 18:45] LABS: Procalcitonin < 0.05 ng/mL (<0.5)
[2020-02-16 20:12] LABS: Reflexed Lactate in 2 Hours Y
[2020-02-16 20:51] LABS: Lactate 2HR (Lactic Acid Rflx) 1.8 mmol/L (0.7-2.1)
[2020-02-16] MEDS: CEFTRIAXONE 1 GM/50 ML FROZ.PIGGY IV (21:51)
--- NOTE | 2020-02-16 22:48 | PC.ADMIT ---
[address] [facility] Admission Note: The patient,Juan David Boyd,79 y/o, was given written information regarding hospital policies, unit procedures and contact persons. Patient's smoking status: Current every day smoker. Vital Signs - 8 hr 02/16/20 17:04 02/16/20 17:38 02/16/20 17:46 Temperature 98.4 F Pulse Rate 69 51 L 62 Respiratory Rate 24 31 H Blood Pressure 170/84 H 161/78 H Pulse Oximetry 90 L 100 02/16/20 17:48 02/16/20 17:50 02/16/20 18:00 Temperature Pulse Rate 63 54 L 55 L Respiratory Rate 28 H 25 H Blood Pressure 161/78 H 166/75 H 160/78 H Pulse Oximetry 100 100 98 02/16/20 18:10 02/16/20 18:20 02/16/20 18:30 Temperature Pulse Rate 64 53 L 56 L Respiratory Rate 35 H 29 H 25 H Blood Pressure 154/85 H 165/79 H 152/78 H Pulse Oximetry 98 98 97 02/16/20 18:40 02/16/20 18:50 02/16/20 19:00 Temperature Pulse Rate 56 L 55 L 53 L Respiratory Rate 27 H 29 H 25 H Blood Pressure 158/78 H 154/77 H 148/75 H Pulse Oximetry 97 95 95 02/16/20 19:10 02/16/20 19:20 02/16/20 19:26 Temperature Pulse Rate 53 L 57 L 62 Respiratory Rate 31 H 32 H 33 H Blood Pressure 156/76 H 158/79 H 174/86 H Pulse Oximetry 94 94 94 02/16/20 19:30 02/16/20 19:41 02/16/20 19:50 Temperature Pulse Rate 63 61 52 L Respiratory Rate 29 H 29 H 26 H Blood Pressure 177/86 H 177/81 H 175/86 H Pulse Oximetry 95 96 93 02/16/20 20:00 02/16/20 20:10 02/16/20 20:20 Temperature Pulse Rate 52 L 51 L 58 L Respiratory Rate 22 21 21 Blood Pressure 162/79 H 161/83 H 174/83 H Pulse Oximetry 94 95 95 02/16/20 20:30 02/16/20 20:40 02/16/20 20:50 Temperature Pulse Rate 54 L 57 L 57 L Respiratory Rate 28 H 28 H 26 H Blood Pressure 164/84 H 165/86 H 173/82 H Pulse Oximetry 93 92 93 02/16/20 21:00 02/16/20 21:10 02/16/20 21:20 Temperature Pulse Rate 53 L 51 L 53 L Respiratory Rate 28 H 27 H Blood Pressure 181/85 H 167/83 H 178/88 H Pulse Oximetry 93 93 96 02/16/20 21:30 02/16/20 22:43 Temperature 97.5 F L Pulse Rate 62 53 L Respiratory Rate 27 H 20 Blood Pressure 167/81 H 149/93 H Pulse Oximetry 86 L 90 L Patient up from ED via stretcher. Patient moved to AC bed w/ slider board and 4 assist. Patient on 3L o2 sats mid 90s, SOB w/movement. Patient with 2 small pressure sores on coccyx, picture taken. Patient denies pain at this time. Patient A&O, calm and cooperative.
[2020-02-16] MEDS: AZITHROMYCIN 500 MG in DEXTROSE 5% IN WATER 250 ML IV (23:14)
--- NOTE | 2020-02-16 23:44 | PM.HP.1 ---
History of Present Illness History of Present Illness Date Patient Seen: 02/16/20 Time Patient Seen: 22:20 Chief complaint: trouble breathing, cant walk right Narrative: Juan David Boyd is a 79-year-old male with history of atrial fibrillation anticoagulated on warfarin who sees Palmira Vera of the cardiology clinic in [place] presented with shortness of breath, and generalized weakness. It is difficult to obtain a history from the patient as he is quite tangential, and will not necessarily answer the question that is asked of him. He states that he was told to go off of his warfarin because his INR was too high and mentions numbers being in the 4 and 5 range. He does not seem to know or be aware of being told that he needed to go back on it when it fell into therapeutic range. It is currently 1.2. Review of Palmira Vera's notes indicated that he had a visit in October of this year where he was on low-dose sotalol and warfarin and at that time did not appear to be wanting to take him off of warfarin and in fact her note states that he would be on lifelong anticoagulation. He states that he was at [facility] at the same time his was there and that they had brought a bunch of tests on him. It is not clear to me as to what his diagnosis for presenting symptoms were that landed him in the hospital. Per Palmira Vera's note he was admitted for acute respiratory failure. The patient shakes his head negative when asked about fever sweats or chills, headaches, nasal congestion, difficulty swallowing, shortness of breath, chest pain, nausea or vomiting, dysuria, diarrhea, or constipation. He did endorse having bilateral leg swelling and that he has a hard time getting his socks on. In the emergency department they did a chest x-ray which indicated a large left-sided pleural effusion. This was followed by CT of the chest which was negative for PE, again mentioning the left-sided large pleural effusion as well as a large hiatal hernia that extends into the lung base region. They also indicated and the infiltrate with left-sided consolidation. The CT scan also indicated concerns for a partially visualized left renal mass concerning for renal cell carcinoma, left periaortic retroperitoneal lymphadenopathy concerning for metastatic disease, a 1.5 centimeter nodule in the right upper lobe. Finding concerning for metastatic disease or primary bronchogenic carcinoma. Recommend follow-up CT scan of the chest in 3-6 months. Patient's temperature was 97.9?, blood pressure 135/76, heart rate 61, respiratory rate of 18, oxygen saturation of 94% on 2 L, he weighs 69 kg with a BMI of 22.4. WBC is elevated at 13.9, RBC 3.58, hemoglobin 10.3, hematocrit 32.9, platelet count of 320 he does have a left shift with 11,800 neutrophils, INR is 1.2, sodium 146, potassium 3.3, chloride 107, bicarb 33, BUN 33, creatinine 1.05, GFR is greater than 60, glucose 122, magnesium 2.6, total CK a his 50, his proBNP was 17 60, procalcitonin was negative at 0.05, and COVID-19 PCR was negative. Patient History Medical History Atrial flutter with rapid ventricular response (~05/25/18) Essential hypertension (01/26/15) Hyperlipidemia (~2009) Hypertension (~2009) jail current use of anticoagulant therapy Mixed hyperlipidemia (01/26/15) Right inguinal hernia Surgical History H/O left inguinal hernia repair H/O right inguinal hernia repair History of colonoscopy S/P hernia repair Family & Social History Family History Father No problems noted. Mother No problems noted. Social History: household members spouse Prior Living Arrangements House Safety & Behavioral: Feels Safe in Current Yes Environment Been Physically Hurt or No Threatened By a Person Suicidal Ideation Description None Suicide Plan Description No Plan Tobacco & Substance use: Smoking Status Current every day smoker Smoking packs per day 0.33 alcohol intake current alcohol intake frequency has a beer approximately 1 times a week Substance Use Type does not use Meds Home Medications and Allergies Home Medications Medication Instructions Recorded Confirmed Type sotalol 80 mg tablet See Rx Instructions PO BID tab 12/07/18 02/16/20 History Allergies Allergy/AdvReac Type Severity Reaction Status Date / Time venom-honey bee Allergy Severe swelling Verified 12/07/18 11:45 [bee venom (honey bee)] at side Review of Systems Review of Systems ROS: Yes All systems reviewed with the patient and are negative except as otherwise documented Exam Vital Signs (past 8 hours): - 02/16/20 17:04 02/16/20 17:38 02/16/20 17:46 Temperature 98.4 F Pulse Rate 69 51 L 62 Respiratory Rate 24 31 H Blood Pressure 170/84 H 161/78 H Pulse Oximetry 90 L 100 02/16/20 17:48 02/16/20 17:50 02/16/20 18:00 Temperature Pulse Rate 63 54 L 55 L Respiratory Rate 28 H 25 H Blood Pressure 161/78 H 166/75 H 160/78 H Pulse Oximetry 100 100 98 02/16/20 18:10 02/16/20 18:20 02/16/20 18:30 Temperature Pulse Rate 64 53 L 56 L Respiratory Rate 35 H 29 H 25 H Blood Pressure 154/85 H 165/79 H 152/78 H Pulse Oximetry 98 98 97 02/16/20 18:40 02/16/20 18:50 02/16/20 19:00 Temperature Pulse Rate 56 L 55 L 53 L Respiratory Rate 27 H 29 H 25 H Blood Pressure 158/78 H 154/77 H 148/75 H Pulse Oximetry 97 95 95 02/16/20 19:10 02/16/20 19:20 02/16/20 19:26 Temperature Pulse Rate 53 L 57 L 62 Respiratory Rate 31 H 32 H 33 H Blood Pressure 156/76 H 158/79 H 174/86 H Pulse Oximetry 94 94 94 02/16/20 19:30 02/16/20 19:41 02/16/20 19:50 Temperature Pulse Rate 63 61 52 L Respiratory Rate 29 H 29 H 26 H Blood Pressure 177/86 H 177/81 H 175/86 H Pulse Oximetry 95 96 93 02/16/20 20:00 02/16/20 20:10 02/16/20 20:20 Temperature Pulse Rate 52 L 51 L 58 L Respiratory Rate 22 21 21 Blood Pressure 162/79 H 161/83 H 174/83 H Pulse Oximetry 94 95 95 02/16/20 20:30 02/16/20 20:40 02/16/20 20:50 Temperature Pulse Rate 54 L 57 L 57 L Respiratory Rate 28 H 28 H 26 H Blood Pressure 164/84 H 165/86 H 173/82 H Pulse Oximetry 93 92 93 02/16/20 21:00 02/16/20 21:10 02/16/20 21:20 Temperature Pulse Rate 53 L 51 L 53 L Respiratory Rate 28 H 27 H Blood Pressure 181/85 H 167/83 H 178/88 H Pulse Oximetry 93 93 96 02/16/20 21:30 02/16/20 21:40 02/16/20 21:50 Temperature Pulse Rate 62 53 L 56 L Respiratory Rate 27 H 26 H 22 Blood Pressure 167/81 H 173/86 H 175/92 H Pulse Oximetry 96 97 02/16/20 22:43 Temperature 97.5 F L Pulse Rate 53 L Respiratory Rate 20 Blood Pressure 149/93 H Pulse Oximetry 90 L Oxygen Delivery Method Non -Rebreather Oxygen Flow Rate 3 Narrative Exam Narrative: Gen: Alert, very hard of hearing, oriented, thin 79 y.o. male, appears ill HEENT: normocephalic, atraumatic, conjunctiva clear, sclera non-icteric, oral mucosa pink and moist Neck: supple, full ROM, no JVD, trachea is midline Resp: Lungs CTA, non-labored breathing CV: RRR, no murmur or rubs Abd: soft, non-tender, normoactive BTs Skin: Bilateral nail clubbing with tobacco stains on all of his fingers no lesions or rashes, dry and intact Neuro: Alert and oriented X 3 w/no focal deficits though appears to be mildly confused. Speech clear and coherent. Extremities: +3 pitting edema of the lower legs and feet, moves all 4 extremities, is ambulatory, negative Lonny?s sign Psyche: Tangential speech pattern, normal mood and affect. Objective Labs Result Diagrams: 02/16/20 18:06 02/16/20 18:06 Labs: Laboratory Results - last 24 hr 02/16/20 02/16/20 02/16/20 17:25 18:06 18:06 WBC 13.9 H RBC 3.58 L Hgb 10.3 L Hct 32.9 L MCV 91.8 MCH 28.8 MCHC 31.3 RDW 17.2 H Plt Count 320 Neut % (Auto) 84.9 H Lymph % (Auto) 6.0 L [place] % (Auto) 9.0 Eos % (Auto) 0.0 L Baso % (Auto) 0.1 Neut # (Auto) 28629 H Lymph # (Auto) 800 L [place] # (Auto) 1300 H Eos # (Auto) 0 Baso # (Auto) 0 PT INR APTT Sodium 146 H Potassium 3.3 L Chloride 107 Carbon Dioxide 33 H BUN 33 H Creatinine 1.05 Estimated GFR > 60.0 BUN/Creatinine Ratio 31.4 H Glucose 122 H Lactate Calcium 8.9 Magnesium Total Bilirubin 0.5 AST 38 ALT 20 Alkaline Phosphatase 101 Total Creatine Kinase CK-MB (CK-2) CK-MB (CK-2) Rel Index Troponin I NT-Pro-B Natriuret Pep Total Protein 7.3 Albumin 3.4 L Globulin 3.9 Albumin/Globulin Ratio 0.9 L Lipase 182 Procalcitonin COVID-19 PCR Negative 02/16/20 02/16/20 02/16/20 18:06 18:06 18:06 WBC RBC Hgb Hct MCV MCH MCHC RDW Plt Count Neut % (Auto) Lymph % (Auto) [place] % (Auto) Eos % (Auto) Baso % (Auto) Neut # (Auto) Lymph # (Auto) [place] # (Auto) Eos # (Auto) Baso # (Auto) PT 13.8 H INR 1.2 APTT 27 Sodium Potassium Chloride Carbon Dioxide BUN Creatinine Estimated GFR BUN/Creatinine Ratio Glucose Lactate 2.3 H Calcium Magnesium 2.6 H Total Bilirubin AST ALT Alkaline Phosphatase Total Creatine Kinase 64 CK-MB (CK-2) TNP CK-MB (CK-2) Rel Index TNP Troponin I 0.018 NT-Pro-B Natriuret Pep 1760 H Total Protein Albumin Globulin Albumin/Globulin Ratio Lipase Procalcitonin COVID-19 PCR 02/16/20 02/16/20 18:06 20:35 WBC RBC Hgb Hct MCV MCH MCHC RDW Plt Count Neut % (Auto) Lymph % (Auto) [place] % (Auto) Eos % (Auto) Baso % (Auto) Neut # (Auto) Lymph # (Auto) [place] # (Auto) Eos # (Auto) Baso # (Auto) PT INR APTT Sodium Potassium Chloride Carbon Dioxide BUN Creatinine Estimated GFR BUN/Creatinine Ratio Glucose Lactate 1.8 Calcium Magnesium Total Bilirubin AST ALT Alkaline Phosphatase Total Creatine Kinase CK-MB (CK-2) CK-MB (CK-2) Rel Index Troponin I NT-Pro-B Natriuret Pep Total Protein Albumin Globulin Albumin/Globulin Ratio Lipase Procalcitonin < 0.05 COVID-19 PCR Assessment & Plan Assessment & Plan narrative: Juan David Boyd is admitted as an inpatient for further workup and management of acute hypoxic respiratory failure, a right lobe pneumonia, CHF exacerbation, and likely requiring a workup for his left-sided pleural effusion. Acute hypoxic respiratory failure, present on admission -he is saturating 90% on 3 L, I have ordered an ABG -patient is a smoker so this could also be likely secondary to a COPD exacerbation -the patient has pneumonia and some other likely undiagnosed pulmonary condition to be worked up during this admission Right lobe pneumonia, acute, present on admission -patient's does have an elevated white count at 13.9 with a left shift of 11,800 neutrophils -He was initiated on IV ceftriaxone 1 g and azithromycin 500 mg IV in the emergency department and this will be continued -blood cultures are pending -Lactate and procalcitonin were normal on admission and will be repeated in the morning CHF exacerbation with a proBNP of 1760, acute, present on admission -patient has bilateral lower extremity 3+ edema -he has been administered Lasix 40 mEq IV and and 40 mEq p.o. x1 tonight -he is on a 1200 mL fluid restriction with daily weights and low-sodium -echocardiogram in the morning Left-sided pleural effusion, acute per, present on admission -PE has been ruled out with a CT angio -discussion needs to be made with Radiology as to whether they can drain this ultrasound and cytology sent -this may be suspicious for a malignancy given findings on CT including: ?Partially visualized left renal mass concerning for renal cell carcinoma. Left periaortic retroperitoneal lymphadenopathy concerning for metastatic disease. 1.5 centimeter nodule in the right upper lobe. Finding concerning for metastatic disease or primary bronchogenic carcinoma. Recommend follow-up CT scan of the chest in 3-6 months based on criteria outlined below. Atrial fibrillation previously anticoagulated on warfarin -he is subtherapeutic with an INR of 1.2 -patient states that he was told to stop his warfarin because his INR was too high but it is unclear as to whether he was instructed to resume his warfarin now that it is 1.2 and subtherapeutic. I do not see in his med rec any prescriptions for warfarin. -continue home dose of sotalol 20 mg twice daily. He takes 140 mg tab and splits a in half. 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 VTE prophylaxis: Wells risk score: 3 and would be 4 if malignancy confirmed Enoxaparin 40 mg subQ daily Consults: None Patient is admitted under inpatient status with expected length of stay greater than 2 midnights due to severity of presenting symptoms, risk of adverse event, and complexity of treatment plan. FEN: IV saline lock with a 1200 ml fluid restriction, heart healthy low sodium diet, BMP and magnesium in the am. Dispo: Unknown at this time Code Status: Full code as discussed with patient Scores CHADS-VASc Congestive heart failure: yes Hypertension: yes Age 75 years or older: yes Diabetes mellitus: no Stroke, TIA, or TE: no Vascular disease: yes Age 65 to 74 years: no Sex category (female): Male CHADS-VASc Score: 5 Wells' Criteria for PE Clinical signs and symptoms of DVT: Yes PE is #1 Dx or equally likely: No Heart rate > 100: No Immobilization at least 3 days or surg in previous 4 weeks: No History of PE or DVT: No Hemoptysis: No Malignancy w/Treatment within 6 months or palliative: No Wells' PE Score total: 3 Quality VTE Deep Vein Thrombosis/Pulmonary Embolism Present on Admission: No
[2020-02-17] VITALS (58 sets, daily range): BP systolic 112–155; BP diastolic 56–76; PULSE 49–81; RESP 10–44; TEMP 36.2–36.6; O2SAT 90–100
--- NOTE | 2020-02-17 | DI.RAD.S_ITS ---
PROCEDURE: XR CHEST 1V INDICATIONS: POST THORACENTESIS TECHNIQUE: One view of the chest was acquired. COMPARISON: [facility], CT, CT CHEST WO CON, 02/17/2020, 12:42. [facility], CR, XR CHEST 1V, 02/16/2020, 18:01. FINDINGS: Surgical changes and devices: None. Lungs and pleura: Tiny left apical pneumothorax. Large residual pleural effusion and subtotal collapse of the left lung. Mediastinum: Mediastinal shift to the left. Left heart border obscured by subjacent process. Large hiatal hernia. Bones and chest wall: No suspicious bony lesions. Overlying soft tissues appear unremarkable. IMPRESSION: Tiny left apical pneumothorax post thoracentesis. Large residual left pleural effusion and subtotal collapse of the left lung. Large hiatal hernia. Dictated by: Gianluca Calabrese M.D. on 02/17/2020 at 14:44 Approved by: Gianluca Calabrese M.D. on 02/17/2020 at 14:48
--- NOTE | 2020-02-17 | DI.ECHO.S_ITS ---
[facility]---------+ [facility] +---------+ : : 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 Left ventricular wall thickness is mildly increased. Left ventricular systolic function is normal. The ejection fraction is estimated to be 55-60%. There are no obvious focal wall motion abnormalities noted but poor endocardial definition reduces the sensitivity for the detection of such. There is a mild dyssynchronous contraction pattern, consistent with a conduction abnormality. Diastolic parameters suggest a relaxation abnormality of the left ventricle, consistent with probable normal filling pressures. The right ventricle is normal size. Right ventricular systolic function is at the lower limits of normal. Right ventricular systolic pressure is estimated to be 23 mmHg plus the clinically estimated CVP which cannot be estimated on this exam. Both atria are normal in size. There is moderate mitral annular calcification. The posterior mitral valve leaflet is mild-moderately calcified with morderately reduced leaflet motion. There is no mitral valve stenosis. There is discrete nodular thickening of the right coronary cusp. There is mildly reduced leaflet mobility. There is no aortic valve stenosis. There is mild to moderate tricuspid regurgitation. The ascending aorta is mildly enlarged. The aortic arch is mildly enlarged. There is a large pleural effusion noted. Procedure: A two-dimensional transthoracic echocardiogram with color flow and Doppler was performed. There is no prior echocardiogram noted for this patient. The study quality was technically difficult. The patient was in sinus bradycardia with heart rates between 48-68 bpm during the exam. Left Ventricle: The left ventricle is normal in size. Left ventricular wall thickness is mildly increased. Left ventricular systolic function is normal. The ejection fraction is estimated to be 55-60%. There are no obvious focal wall motion abnormalities noted but poor endocardial definition reduces the sensitivity for the detection of such. There is a mild dyssynchronous contraction pattern, consistent with a conduction abnormality. Diastolic parameters suggest a relaxation abnormality of the left ventricle, consistent with probable normal filling pressures. Right Ventricle: The right ventricle is normal size. Right ventricular systolic function is at the lower limits of normal. Atria: Both atria are normal in size. There is no Doppler evidence for an interatrial shunt. Mitral Valve: There is moderate mitral annular calcification. The posterior mitral valve leaflet is mild-moderately calcified with morderately reduced leaflet motion. There is no mitral valve stenosis. There is trace mitral regurgitation. Aortic Valve: The aortic valve is trileaflet. There is discrete nodular thickening of the right coronary cusp. There is mild aortic valve sclerosis. There is mildly reduced leaflet mobility. There is no aortic valve stenosis. No aortic regurgitation is present. Tricuspid Valve: The tricuspid valve is not well visualized, but is grossly normal. There is mild to moderate tricuspid regurgitation. Right ventricular systolic pressure is estimated to be 23 mmHg plus the clinically estimated CVP which cannot be estimated on this exam. Pulmonic Valve: The pulmonic valve is not well seen, but is grossly normal. There is no pulmonic valvular regurgitation. Great Vessels: The aortic root is normal size. The ascending aorta is mildly enlarged. The aortic arch is mildly enlarged. The inferior vena cava was not visualized. Pericardium/ Pleura There is no pericardial effusion. There is a large pleural effusion noted. MMode/2D Measurements & Calculations LVIDd: 4.1 cm LVOT diam: 2.0 cm LVIDs: 2.7 cm Ao root diam: 3.4 cm FS: 34.4 % asc Aorta Diam: 3.7 cm EPSS: 0.37 cm Ao Arch Diam (Prox Trans): 3.4 cm IVSd: 1.2 cm LVPWd: 1.2 cm LV carpenter. diameter/BSA (cm/m^2): 2.2 LV sys. diameter/BSA (cm/m^2): 1.4 LA A2 area: 26.0 cm2 RA long axis: 5.3 cm LA A4 area: 16.4 cm2 RA area: 17.8 cm2 LA length (vol): 6.0 cm RA vol: 50.6 ml LA vol: 60.5 ml RA : 27.5 ml/m2 LA vol index: 32.9 ml/m2 RVD1 (basal): 3.9 cm TAPSE: 1.6 cm Doppler Measurements & Calculations Ao V2 max: 142.8 cm/sec LVOT Max Robert: 78.1 cm/sec Ao V2 mean: 87.6 cm/sec LV V1 max P.4 mmHg Ao max P.2 mmHg LV V1 VTI: 20.1 cm Ao mean P.7 mmHg HOLLIS(I,D): 2.1 cm2 Ao V2 VTI: 31.0 cm HOLLIS(V,D): 1.8 cm2 sev ratio: 0.65 HOLLIS indexed to BSA (cm^2/m^2): 1.2 MV E max robert: 59.8 cm/sec TR max robert: 239.0 cm/sec MV A max robert: 64.9 cm/sec TR max P.8 mmHg MV E/A: 0.92 PA V2 max: 56.7 cm/sec Med Peak E' Robert: 4.8 cm/sec PA V2 mean: 37.9 cm/sec E/E' med: 12.4 PA mean P.66 mmHg Lat Peak E' Robert: 7.4 cm/sec PA pr(Accel): 44.7 mmHg E/E' lat: 8.1 E/e' average: 10.2 MV dec time: 0.28 sec MVA(VTI): 2.3 cm2 MV V2 mean: 43.5 cm/sec SV(LVOT): 65.6 ml MV mean P.90 mmHg MV V2 VTI: 29.1 cm Reading Physician:09:34 AM
[2020-02-17 00:11] LABS: Creatine Kinase 50 U/L (55-170)
[2020-02-17 00:24] LABS: Troponin I 0.015 ng/mL (0.01-0.034)
--- NOTE | 2020-02-17 00:25 | RT ---
I assessed pt per MD. Pt has mild SOB. CXR showed a large L pleural effusion. Pt is on 2 LPM, SpO2 92%. Pt has LE pitting edema and pt stated he has not urinated at all today. Recommending diuretics and to reassess after diuretics are given.
[2020-02-17] MEDS: FUROSEMIDE 20 MG/2 ML VIAL 40 MG IV (00:49)
[2020-02-17] MEDS: POTASSIUM CHLORIDE 40 MEQ in SODIUM CHLORIDE 0.9% 500 ML 130 ML IV (01:07)
[2020-02-17] MEDS: POTASSIUM CHLORIDE 20 MEQ TAB 40 MEQ PO (01:44)
[2020-02-17 03:01] LABS: Bacteria Urine None Seen; WBC Urine None Seen (0-5/HPF)
--- NOTE | 2020-02-17 03:10 | PC.NURSE ---
Pt. transferred to ICU, report given to Francia INSURANCE ACCOUNT REPRESENTATIVE.
[2020-02-17 03:13] LABS: Culture Indicated Urine Cult Not Indicated; RBC Urine 0-1/HPF (0-5/HPF)
[2020-02-17 04:16] LABS: HCO3 ABG 29 mmol/L (22-26); PCO2 ABG 38.7 mmHg (35-45); PO2 ABG 71 mmHg (80-100); pH ABG 7.47 (7.35-7.45)
[2020-02-17 04:17] LABS: Oxygen Saturation ABG 95 % (95-100); TCO2 ABG 30 mmol/L (21-31)
[2020-02-17 04:19] LABS: Fractionated Inspired Oxygen 80
[2020-02-17 06:09] LABS: Add Manual Diff / Slide Review NO; Basophils Absolute Auto 0 /uL (0-100); Basophils Percent Auto 0.2 % (0-2); Eosinophils Absolute Auto 0 /uL (0-450); Eosinophils Percent Auto 0.1 % (2-4); Hematocrit 33.1 % (41-53); Hemoglobin 10.2 g/dL (13.5-17.5); Lymphocytes Absolute Auto 1200 /uL (1100-4500); Lymphocytes Percent Auto 7.3 % (25-40); Mean Corpuscular Hemoglobin 28.5 PG (26-34); Mean Corpuscular Volume 92.1 fL (80-100); Monocytes Absolute Auto 2100 /uL (0-900); Monocytes Percent Auto 13.1 % (3-14); Neutrophils Absolute Auto 12700 /uL (1500-7000); Neutrophils Percent Auto 79.3 % (50-75); Platelet Count 298 X10^3/uL (150-400); Red Blood Cell Count 3.59 X10^6/uL (4.5-5.9); Red Cell Distribution Width 17.2 % (11.6-14.8); White Blood Cell Count 16.1 X10^3/uL (4.5-11.0)
[2020-02-17 06:15] LABS: INR 1.2 (0.9-1.3); Prothrombin Time 13.9 SECONDS (10.1-12.7)
[2020-02-17 06:17] LABS: Lactate (Lactic Acid) 2.5 mmol/L (0.7-2.1)
[2020-02-17 06:18] LABS: Alanine Aminotransferase 19 IU/L (<50); Albumin Globulin Ratio 0.8 (1.0-2.8); Alkaline Phosphatase 100 U/L (38-126); Aspartate Aminotransferase 34 IU/L (17-59); BUN Creatinine Ratio 26.2 (6-22); Bilirubin Total 0.4 mg/dL (0.2-1.3); Blood Urea Nitrogen 28 mg/dL (9-20); Calcium 8.7 mg/dL (8.4-10.2); Carbon Dioxide 35 mmol/L (22-32); Chloride 111 mmol/L (98-107); Estimated Glomerular Filt Rate > 60.0 mL/min (>60); Globulin 3.6 g/dL (1.7-4.1); Glucose 108 mg/dL (80-110); HEMOLYSIS < 15 (0-50); Magnesium 2.4 mg/dL (1.6-2.3); Potassium 4.5 mmol/L (3.4-5.1); Sodium 148 mmol/L (137-145); Total Protein 6.6 g/dL (6.3-8.2)
[2020-02-17 06:30] LABS: Creatine Kinase 45 U/L (55-170)
--- NOTE | 2020-02-17 06:33 | PC.NURSE ---
Patient tranfered to room 227 in ICU at 0245, fatigued but oriented x3 and able to participate in care. Short of breath with exertion, initially on 13L HFNC, but able to be titrated down to 8L by 0630, RR 30s, Lt lung sounds very diminished, crackles Rt mid/lower lobes. Voided 1200ml + after IV Lasix given at 0045. SB/SR, HR occasionally is in 40s briefly. K+ Isidoro infusing
--- NOTE | 2020-02-17 06:41 | DI.US.S_ITS ---
PROCEDURE: US THORACENTESIS INDICATIONS: Large left pleural effusion TECHNIQUE: The indications, alternatives, benefits, risks, and complications of the procedure were explained to the patient. Written informed consent was obtained and placed in the chart. The chest was examined sonographically, and an appropriate site was chosen for thoracentesis. The skin was prepared and draped in the usual sterile fashion, and 1% lidocaine was infiltrated from the skin down through the pleural surface. A 19-gauge catheter-covered needle was then introduced into the pleural space, the catheter was advanced and the needle was withdrawn, and thereafter pleural fluid was aspirated. The catheter was then removed and a dressing was applied. COMPARISON: None. FINDINGS: Access site: Left hemithorax. Needle: One-Step centesis catheter with introducer needle. Fluid volume and description: 1500 cubic centimeters of brownish yellow fluid. Fluid sent for diagnostic testing: Jannie quest ordering physician Medications: 1% lidocaine for local anaesthesia. Complications: None; post-procedural chest radiograph is pending to assess for pneumothorax. IMPRESSION: Successful ultrasound-guided thoracentesis. Dictated by: Judy Smith MD, PhD on 02/17/2020 at 14:18 Approved by: Judy Smith MD, PhD on 02/17/2020 at 14:19
[2020-02-17 06:44] LABS: Troponin I 0.017 ng/mL (0.01-0.034)
[2020-02-17 06:52] LABS: Procalcitonin < 0.05 ng/mL (<0.5)
[2020-02-17 08:04] LABS: Reflexed Lactate in 2 Hours Y
--- NOTE | 2020-02-17 08:52 | PATH_ITS ---
Note [facility] Accession Number: [id number] TESTS RESULT FLAG UNITS REF RANGE LAB Clinician Provided Cytology Information No. of containers..01 Other (Miscellaneous) [A] 01 PLEURAL FLUID DIAGNOSIS: [A] 01 PLEURAL FLUID SUSPICIOUS FOR MALIGNANCY; SEE COMMENT. COMMENT: Severely atypical epithelioid cells are present. A panel of immunostains will be performed to further characterize. Those results and the final diagnosis will be reported as an addendum. Pathologist ICD10: J90 Frida Mcclure MD, Pathologist NPI- [id number] Baljinder Garsia, Dancing Teacher ([facility]) 01 60 CC, ORANGE, CLOUDY RECEIVED: FRESH IN ORANGE CAP CONTAINER. /[facility] 02/18/2020 0752 Local FLAG LEGEND: L-Low Normal,H-High Normal,LL-Alert Low,HH-Alert High <-Panic Low,>-Panic High,A-Abnormal,AA-Critical Abnormal Performed at: 01 =Z [facility] [address], [place] [address] Zafar Novoa MD, Specimen Comment: A duplicate report has been generated due to demographic updates. Performed at: 01 [facility] [address], [place], [place] [id number] MD Zafar Novoa MD Phone: [phone]
[2020-02-17] MEDS: ASPIRIN EC 81 MG TABLET PO (08:55)
[2020-02-17] MEDS: CEFTRIAXONE 2 GM/50 ML FROZ.PIGGY IV (08:55)
[2020-02-17 08:56] LABS: Lactate 2HR (Lactic Acid Rflx) 1.7 mmol/L (0.7-2.1)
[2020-02-17] MEDS: SODIUM CHLORIDE 0.9% FLUSH 10 ML IV (08:56)
[2020-02-17] MEDS: SOTALOL 80 MG TABLET 20 MG PO (09:57)
--- NOTE | 2020-02-17 12:46 | DI.CT.S_ITS ---
PROCEDURE: CT CHEST WO CON INDICATIONS: Follow-up on left lung post thoracentesis TECHNIQUE: Noncontrast 5 mm thick sections acquired from the pulmonary apices to the posterior costophrenic angles. 1 mm lung window, 5 mm thick coronal and sagittal and 7 mm axial MIP reformats were then acquired. For radiation dose reduction, the following was used: automated exposure control, adjustment of mA and/or kV according to patient size. COMPARISON: [facility], CT, CT CHEST W CON, 02/16/2020, 18:53. [facility], [place], US THORACENTESIS, 02/17/2020, 12:12. FINDINGS: Image quality: Excellent. Lungs and pleura: Scarring/atelectasis in the right lung. In the right upper lobe there is a nodule which measures approximately 1.2 cm. Airway thickening in keeping with nonspecific bronchitis and/or reactive airways disease. . Sub 5 mm ground-glass nodularity in the right lung base on image 161. Large left hydropneumothorax, with small gaseous non dependent component. In the left pneumothorax, there are multifocal areas of small nodularity, subcentimeter in size although concerning for neoplastic/metastatic etiology. Large amount of debris present within the left airways. Large hiatal hernia Mediastinum: Heart size is normal. Coronary artery calcifications are present. No pericardial effusion. No mediastinal adenopathy by size criteria. Thoracic aorta and central pulmonary arteries are normal in size. Bones and chest wall: No suspicious bony lesions. No vertebral body compression fractures. No axillary or supraclavicular adenopathy by size criteria. Thyroid is grossly unremarkable Diffuse osteopenia Abdomen: Visualized upper abdominal solid organs and bowel loops appear normal in the absence of contrast. IMPRESSION: Left hydropneumothorax, with large amount of left pleural fluid and small nondependent pneumothorax (which may be related to chronic pleural rind). In the area of pneumothorax, there is multifocal pleural nodularity and thickening, concerning for metastatic/malignant etiologies. 1.2 cm nodule involving the right upper lobe. No interval change since 02/16/20 Large hiatal hernia. Presumed debris within the left bronchi in keeping with aspiration. Additional chronic and incidental findings as above. Dictated by: Rober Piña M.D. on 02/17/2020 at 13:24 Approved by: Rober Piña M.D. on 02/17/2020 at 13:36
[2020-02-17 13:13] LABS: Body Fluid Red Blood Cells 8501 /uL; Body Fluid Tot Nucleated Cells 497 /uL
[2020-02-17 13:24] LABS: LDH Body Fluid 1215 U/L; Total Protein Body Fluid 4.6 g/dL
[2020-02-17] MEDS: ENOXAPARIN 40 MG/0.4 ML SYRINGE SUBCUT (13:31)
[2020-02-17 14:11] LABS: Body Fluid Appearance SLIGHTLY CLOUDY; Body Fluid Clotted? NO CLOTS PRESENT; Body Fluid Color YELLOW; Eosinophils Body Fluid 0 %; Mononuclear WBC Body Fluid 24 %; Other Cells Body Fluid 75 %; Polynuclear WBC Body Fluid 1 %
--- NOTE | 2020-02-17 14:51 | PC.NURSE ---
Day Shift Note Patient is alert and oriented x3, able to accurately state where he is and the date, however, is forgetful at times regarding plan of care. Oxygen at 9L HFNC at start of shift, titrated to off by 1120, RA with SpO2 90-93%. Goal for SpO2 88% and above per Dr. Henao. Lung sounds extremely decreased to left and coarse with insp. rhonchi to right. Thoracentesis done this afternoon with 1500 ml of fluid pulled off. SB in the 50s, occ. drops briefly down to the 40s - MD notified and aware. Allevyn dressings placed to pressure ulcers on coccyx, turning every 2 hours to offload pressure. Call light within reach, using appropriately to make needs known.
--- NOTE | 2020-02-17 15:33 | PT.IIE ---
Surgical History (Last Reviewed 02/17/20 @ 02:10 by REED Gibbons) H/O left inguinal hernia repair H/O right inguinal hernia repair History of colonoscopy S/P hernia repair Medical History (Last Reviewed 02/17/20 @ 02:10 by REED Gibbons) Atrial flutter with rapid ventricular response (~05/25/18) Essential hypertension (01/26/15) Hyperlipidemia (~2009) Hypertension (~2009) [facility] current use of anticoagulant therapy Mixed hyperlipidemia (01/26/15) Right inguinal hernia Physical Therapy Inpatient Evaluation/Re-Eval M1 PT/OT-IP Prior Functional Status Start: 02/17/20 16:56 Freq: NEEDED Status: Active Protocol: Document 02/17/20 16:12 AB (Rec: 02/17/20 17:13 AB [id number]) Medical Review Prior Functional Status Medical History Reviewed Yes Communication able to make needs known Mobility and Gait stated that he is modified independent with all mobilities and ambulation without AD but usually furniture cruises; stated that he started using a FWW ~ 2 days ago Social History Household Members spouse Living Arrangements House Number of Floors (Floors) Two Floors Number of Stairs To Enter/Railing? 2 steps with L rail to enter 13 steps with R rail ascending to bedroom level Home Environment Standard Height Toilet,Walk in Shower Home Equipment Front Wheel Walker M2 PT-IP Current Condition Start: 02/17/20 16:56 Freq: NEEDED Status: Active Protocol: Document 02/17/20 16:12 AB (Rec: 02/17/20 17:13 AB [id number]) Physical Therapy Current Condition Current Condition Evaluation Date 02/17/20 Treatment Diagnosis pleural effusion s/p thoracocentesis; difficulty in walking Onset Date 02/16/20 Precautions Other Precautions O2 sat M3 PT-IP Subjective Start: 02/17/20 16:56 Freq: NEEDED Status: Active Protocol: Document 02/17/20 16:12 AB (Rec: 02/17/20 17:13 AB [id number]) Subjective Physical Therapy Visit Type Type Initial Evaluation Visit Start Time 15:33 Visit Stop Time 16:12 Total Visit Minutes 39 Number of CAR INSPECTOR Visits 0 Physical Therapy Visit Comments Patient Comments pt is agreeable to do PT Therapy Pain Assessment Pain Present Pain Present Denied Pain M4 PT-IP Mobility and Gait Start: 02/17/20 16:56 Freq: NEEDED Status: Active Protocol: Document 02/17/20 16:12 AB (Rec: 02/17/20 17:13 AB [id number]) PT-Bed Mobility Assessment Supine to Sit Supine to Sit Maximum Assistance,Head of Bed Elevated PT-Transfer Assessment Sit to and From Stand Sit to and from Stand Moderate Assistance,1 Person Assistance,Use of Upper Extremities Equipment Transfer Assistive Device Gait Belt,Front Wheeled Walker Orthotic/Prosthetic Devices or Brace: No Transfers Transfer Destination Chair Transfer Technique Stand Step Pivot Transfer Ability Level of Assist Moderate Assistance,1 Person Assistance,Use of Upper Extremities Comments Mobility Comments O2 sat at room air 96%. completed supine to sit HOB elevated max A and max cues. pt was able to sit on EOB CGA. has increase thoracic kyphosis in sitting. O2 sat decreased to ~ 84% with activity. nurse came in and O2 provided at 2 1/2L/min. O2 sat increased to 94%. pt completed sit to stand mod A and cues and was able to take steps to the chair using FWW mod A. pt agreed to ambulate with PT and completed ~ 20 ft using FWW mod A and cues. pt agreed to stay up on chair. positioned on chair. call light and table placed within reach. informed nurse regarding pt's mobility level . O2 sat at the end of PT session: 96% Gait Assessment Gait Gait Assistance Required: Moderate Assistance Distance (Feet) 20 Able to Maintain Weight Bearing Status Yes During Gait Assistive Devices Assistive Device Gait Belt,Front Wheeled Walker Orthotic/Prosthetic Devices or Brace: No Gait Deviations General Gait Pattern Antalgic,Decreased Stride Length,Decreased Feet Clearance,Flexed Trunk,Step-to Gait Factors Limiting Gait Function Factors Limiting Gait Function Decreased Activity Tolerance, Decreased Strength,Poor Balance,Poor Safety Awareness, Respiratory Distress PT-Balance Assessment Sitting Balance and Reactions Static Sitting Balance Ability Good Dynamic Sitting Balance Ability Fair Standing Balance and Reactions Static Standing Balance Ability Fair Dynamic Standing Balance Ability Fair Device Used FWW M5 PT-IP Objective Assessments Start: 02/17/20 16:56 Freq: NEEDED Status: Active Protocol: Document 02/17/20 16:12 AB (Rec: 02/17/20 17:13 AB [id number]) Orientation Orientation/Cognition Level of Alertness Alert Orientation Name,Place,Situation Language Function Ability Hard of Hearing Safety Awareness Decreased Safety Awareness Gross Range of Motion Lower Extremity ROM Assessment Within Functional Limits Strength Lower Extremity Strength Hip 4-/5 Knee 4-/5 Sensation Assessment Sensation Gross Sensation WNL Muscle Tone Muscle Tone WNL Yes M6 PT-IP Treatment Start: 02/17/20 16:56 Freq: NEEDED Status: Active Protocol: Document 02/17/20 16:12 AB (Rec: 02/17/20 17:13 AB [id number]) Physical Therapy Treatment Education Education Provided Safety M7 PT-IP Assessment and Plan Start: 02/17/20 16:56 Freq: NEEDED Status: Active Protocol: Document 02/17/20 16:12 AB (Rec: 02/17/20 17:13 AB [id number]) PT Summary Assessment and Plan Potential Rehabilitation Potential Fair Status of Condition at Evaluation Evolving Summary Impairments ROM,Strength,Balance, Coordination,Cognition,Bed Mobility,Transfers,Gait, Activity Tolerance Assessment Summary pt requiring mod A with mobility and has decrease activity tolerance. d/c plan depending on progress and if spouse will be able to assist pt safely. will conduct caregiver training and if pt goes home, will require HHPT. will continue to assess progress. Goals Bed Mobility Goal Standby Assistance Transfer Goal Standby Assistance,Front Wheeled Walker Gait Goal Standby Assistance,Front Wheel Walker Gait Distance 150 Other Goals up/down 13 steps R rail SBA up/down 2 steps L rail SBA Days to Meet Goals 10 Frequency of Treatment Frequency Of Treatment Once a Day Treatment Plan Physical Therapy Treatment Plan Bed Mobility Training,Transfer Training,Gait Training, Therapeutic Exercise,Balance Retraining,Post Op Education, Discharge Planning,Hot or Cold Pack,Neuromuscular Re-ed, Coordination Retraining,Manual Therapy Recommendations To Nursing Amount of Assist Needed 1 Person Assist Discharge Recommendations PT Discharge Recommendations Home with 30/09 Assist,Home Health,SNF Rehab Other Discharge Recommendations depending on progress: home wiht 30/09 and HHPT vs SNF Transportation Needs at Discharge Private Vehicle,Wheelchair/ Cabulance
--- NOTE | 2020-02-17 15:34 | CM.IDA ---
Initial DCP Assessment Note Assessment & Plan narrative: Juan David Boyd is admitted as an inpatient for further workup and management of acute hypoxic respiratory failure, a right lobe pneumonia, CHF exacerbation, and likely requiring a workup for his left-sided pleural effusion. -this may be suspicious for a malignancy given findings on CT including: ?Partially visualized left renal mass concerning for renal cell carcinoma. Left periaortic retroperitoneal lymphadenopathy concerning for metastatic disease. 1.5 centimeter nodule in the right upper lobe. Finding concerning for metastatic disease or primary bronchogenic carcinoma. Recommend follow-up CT scan of the chest in 3-6 months based on criteria outlined below. Working closely w/ Dr Henao today to determine safest and most appropriate DCP. Dr Henao discussed goals of care with patient today; according to Dr Henao, patient suggested he would not want aggressive life sustaining measures...especially in the setting of suspected metastatic disease. Spouse not at bedside today. Placed call to spouse Julia, introduced role. Provided summary of above and Julia agreed patient would not be happy completing ongoing cancer treatment if it were offered. Julia agreeable to this MINING CONSULTANT requesting Hospice info visit. Julia explains that patient has been in a process of decline over the last three weeks. Julia provides assist w/ most ADLs. Started discussion about Dispo options and Julia says patient will not DC to SNF. This MINING CONSULTANT does not have PT note currently, although suspicion is patient is quite deconditioned and weak and recommendation will be SNF. Julia will plan to be here at 1100 tomorrow to discuss DCP options further. This MINING CONSULTANT will alert therapy team of spouse's schedule so they may coordinate w/spouse. Following closely. Patient appropriate for home w/hospice, although she will likely require assist from in home cgs or (?) THOMAS Beauchamp
[2020-02-17 16:40] LABS: Cholesterol 140 mg/dL (140-199); HDL Cholesterol 34 mg/dL (40-60); LDL Cholesterol Calculated 86 mg/dL (<100); Triglycerides 98 mg/dL (35-150)
--- NOTE | 2020-02-17 17:49 | PM.PN.1 ---
Subjective Subjective Date Patient Seen: 02/17/20 Interval history: Juan David Boyd is an 79-year-old male with a past medical history significant for hypertension, hyperlipidemia, paroxysmal atrial fibrillation, and tobacco dependence who presented to the ED for progressive generalized weakness over the past month with rather significant shortness of breath over the past few days. The patient is resting in bed comfortably. Discussed CT chest, abdomen and pelvis findings in the likelihood that he has advanced metastatic cancer of unknown primary. The patient informs me that she would not want aggressive treatment such as chemotherapy, radiation or surgical intervention. Discussed hospice in detail. He is eager to go home. He underwent thoracentesis with 1500 cc pleural fluid removal. He subsequently developed a tiny left apical pneumothorax and continues to have large residual pleural effusion with subtotal collapsed lung. He denies headache, shortness of breath, chest pain, abdominal pain, nausea, vomiting, fever, chills, dysuria, diarrhea or constipation. He is voiding and eliminating without difficulty. He is up ambulating with assistance. Exam Vital Signs (past 8 hours): - 02/17/20 10:24 02/17/20 11:00 02/17/20 11:10 Temperature Pulse Rate 73 Respiratory Rate 10 L Blood Pressure Pulse Oximetry 92 98 97 02/17/20 11:15 02/17/20 12:00 02/17/20 12:05 Temperature 97.2 F L Pulse Rate 57 L Respiratory Rate 23 Blood Pressure 112/57 L Pulse Oximetry 91 90 L 91 02/17/20 16:00 Temperature 97.6 F Pulse Rate 56 L Respiratory Rate 29 H Blood Pressure 125/58 L Pulse Oximetry Oxygen Delivery Method Nasal Cannula Oxygen Flow Rate 0 Narrative Exam Narrative: General: Elderly male lying in bed and in no acute distress, well-developed, well-nourished, appropriately interactive HEENT: Normocephalic, atraumatic. External ears without defect. Pupils equal, round, and reactive to light and accommodation. Anicteric sclerae, moist conjunctivae, and no lid lag. Oropharynx free of erythema and cobble stoning with moist mucosa. Neck: Supple with full range of motion. Mild JVD. No lymphadenopathy or thyromegaly. Cardiovascular: Regular rate and rhythm without murmurs, rubs, or gallops appreciated Pulmonary: Clear to auscultation in right lung field with no breath sounds in left lung white other than at apex. No crackles, wheezes, or rhonchi. Normal respiratory effort with no use of accessory muscles. Abdomen: Bowel tones present. Soft, nontender, nondistended. No hepatosplenomegaly or masses appreciated. Extremities: No clubbing or cyanosis. Moderate pitting edema to knees bilaterally. Skin: Normal temperature, turgor, and texture; no rash, ulcers, or subcutaneous nodules appreciated. Neurological: Cranial nerves grossly intact. Psychiatric: Normal mood and affect. Alert and oriented to person, place, and time. Probable mild cognitive impairment with short-term memory recall deficit. Objective Labs Result Diagrams: 02/18/20 04:20 02/18/20 04:20 Labs: Laboratory Results - last 24 hr 02/16/20 02/16/20 02/16/20 17:25 18:06 18:06 WBC 13.9 H RBC 3.58 L Hgb 10.3 L Hct 32.9 L MCV 91.8 MCH 28.8 MCHC 31.3 RDW 17.2 H Plt Count 320 Neut % (Auto) 84.9 H Lymph % (Auto) 6.0 L [place] % (Auto) 9.0 Eos % (Auto) 0.0 L Baso % (Auto) 0.1 Neut # (Auto) 89573 H Lymph # (Auto) 800 L [place] # (Auto) 1300 H Eos # (Auto) 0 Baso # (Auto) 0 PT INR APTT ABG pH ABG pCO2 ABG pO2 ABG HCO3 ABG Total CO2 ABG O2 Saturation ABG Base Excess FiO2 Sodium 146 H Potassium 3.3 L Chloride 107 Carbon Dioxide 33 H BUN 33 H Creatinine 1.05 Estimated GFR > 60.0 BUN/Creatinine Ratio 31.4 H Glucose 122 H Lactate Calcium 8.9 Magnesium Total Bilirubin 0.5 AST 38 ALT 20 Alkaline Phosphatase 101 Total Creatine Kinase CK-MB (CK-2) CK-MB (CK-2) Rel Index Troponin I NT-Pro-B Natriuret Pep Total Protein 7.3 Albumin 3.4 L Globulin 3.9 Albumin/Globulin Ratio 0.9 L Triglycerides Cholesterol LDL Cholesterol, Calc HDL Cholesterol Lipase 182 Procalcitonin Urine RBC Urine WBC Urine Bacteria Ur Culture Indicated? Fluid Color Fluid Appearance Fluid pH Fluid RBC Fld Tot Nucleated Cell Fluid Polynuclear WBCs Fluid Mononuclear WBCs Fluid Eosinophils Fluid Other Cells Body Fluid Clot Fluid Total Protein Fluid LDH Nasal Screen MRSA (PCR) COVID-19 PCR Negative 02/16/20 02/16/20 02/16/20 18:06 18:06 18:06 WBC RBC Hgb Hct MCV MCH MCHC RDW Plt Count Neut % (Auto) Lymph % (Auto) [place] % (Auto) Eos % (Auto) Baso % (Auto) Neut # (Auto) Lymph # (Auto) [place] # (Auto) Eos # (Auto) Baso # (Auto) PT 13.8 H INR 1.2 APTT 27 ABG pH ABG pCO2 ABG pO2 ABG HCO3 ABG Total CO2 ABG O2 Saturation ABG Base Excess FiO2 Sodium Potassium Chloride Carbon Dioxide BUN Creatinine Estimated GFR BUN/Creatinine Ratio Glucose Lactate 2.3 H Calcium Magnesium 2.6 H Total Bilirubin AST ALT Alkaline Phosphatase Total Creatine Kinase 64 CK-MB (CK-2) TNP CK-MB (CK-2) Rel Index TNP Troponin I 0.018 NT-Pro-B Natriuret Pep 1760 H Total Protein Albumin Globulin Albumin/Globulin Ratio Triglycerides Cholesterol LDL Cholesterol, Calc HDL Cholesterol Lipase Procalcitonin Urine RBC Urine WBC Urine Bacteria Ur Culture Indicated? Fluid Color Fluid Appearance Fluid pH Fluid RBC Fld Tot Nucleated Cell Fluid Polynuclear WBCs Fluid Mononuclear WBCs Fluid Eosinophils Fluid Other Cells Body Fluid Clot Fluid Total Protein Fluid LDH Nasal Screen MRSA (PCR) COVID-19 PCR 02/16/20 02/16/20 02/16/20 18:06 20:35 23:50 WBC RBC Hgb Hct MCV MCH MCHC RDW Plt Count Neut % (Auto) Lymph % (Auto) [place] % (Auto) Eos % (Auto) Baso % (Auto) Neut # (Auto) Lymph # (Auto) [place] # (Auto) Eos # (Auto) Baso # (Auto) PT INR APTT ABG pH ABG pCO2 ABG pO2 ABG HCO3 ABG Total CO2 ABG O2 Saturation ABG Base Excess FiO2 Sodium Potassium Chloride Carbon Dioxide BUN Creatinine Estimated GFR BUN/Creatinine Ratio Glucose Lactate 1.8 Calcium Magnesium Total Bilirubin AST ALT Alkaline Phosphatase Total Creatine Kinase 50 L CK-MB (CK-2) TNP CK-MB (CK-2) Rel Index TNP Troponin I 0.015 NT-Pro-B Natriuret Pep Total Protein Albumin Globulin Albumin/Globulin Ratio Triglycerides Cholesterol LDL Cholesterol, Calc HDL Cholesterol Lipase Procalcitonin < 0.05 Urine RBC Urine WBC Urine Bacteria Ur Culture Indicated? Fluid Color Fluid Appearance Fluid pH Fluid RBC Fld Tot Nucleated Cell Fluid Polynuclear WBCs Fluid Mononuclear WBCs Fluid Eosinophils Fluid Other Cells Body Fluid Clot Fluid Total Protein Fluid LDH Nasal Screen MRSA (PCR) COVID-19 PCR 02/17/20 02/17/20 02/17/20 02:50 02:56 03:05 WBC RBC Hgb Hct MCV MCH MCHC RDW Plt Count Neut % (Auto) Lymph % (Auto) [place] % (Auto) Eos % (Auto) Baso % (Auto) Neut # (Auto) Lymph # (Auto) [place] # (Auto) Eos # (Auto) Baso # (Auto) PT INR APTT ABG pH 7.47 H ABG pCO2 38.7 ABG pO2 71 L ABG HCO3 29 H ABG Total CO2 30 ABG O2 Saturation 95 ABG Base Excess 5.0 H FiO2 80 Sodium Potassium Chloride Carbon Dioxide BUN Creatinine Estimated GFR BUN/Creatinine Ratio Glucose Lactate Calcium Magnesium Total Bilirubin AST ALT Alkaline Phosphatase Total Creatine Kinase CK-MB (CK-2) CK-MB (CK-2) Rel Index Troponin I NT-Pro-B Natriuret Pep Total Protein Albumin Globulin Albumin/Globulin Ratio Triglycerides Cholesterol LDL Cholesterol, Calc HDL Cholesterol Lipase Procalcitonin Urine RBC 0-1/hpf Urine WBC None seen Urine Bacteria None seen Ur Culture Indicated? Cult not indicated Fluid Color Fluid Appearance Fluid pH Fluid RBC Fld Tot Nucleated Cell Fluid Polynuclear WBCs Fluid Mononuclear WBCs Fluid Eosinophils Fluid Other Cells Body Fluid Clot Fluid Total Protein Fluid LDH Nasal Screen MRSA (PCR) Negative for mrsa COVID-19 PCR 02/17/20 02/17/20 02/17/20 06:00 06:00 06:00 WBC 16.1 H RBC 3.59 L Hgb 10.2 L Hct 33.1 L MCV 92.1 MCH 28.5 MCHC 31.0 RDW 17.2 H Plt Count 298 Neut % (Auto) 79.3 H Lymph % (Auto) 7.3 L [place] % (Auto) 13.1 Eos % (Auto) 0.1 L Baso % (Auto) 0.2 Neut # (Auto) 48871 H Lymph # (Auto) 1200 [place] # (Auto) 2100 H Eos # (Auto) 0 Baso # (Auto) 0 PT 13.9 H INR 1.2 APTT ABG pH ABG pCO2 ABG pO2 ABG HCO3 ABG Total CO2 ABG O2 Saturation ABG Base Excess FiO2 Sodium 148 H Potassium 4.5 D Chloride 111 H Carbon Dioxide 35 H BUN 28 H Creatinine 1.07 Estimated GFR > 60.0 BUN/Creatinine Ratio 26.2 H Glucose 108 Lactate Calcium 8.7 Magnesium 2.4 H Total Bilirubin 0.4 AST 34 ALT 19 Alkaline Phosphatase 100 Total Creatine Kinase CK-MB (CK-2) CK-MB (CK-2) Rel Index Troponin I NT-Pro-B Natriuret Pep Total Protein 6.6 Albumin 3.0 L Globulin 3.6 Albumin/Globulin Ratio 0.8 L Triglycerides Cholesterol LDL Cholesterol, Calc HDL Cholesterol Lipase Procalcitonin Urine RBC Urine WBC Urine Bacteria Ur Culture Indicated? Fluid Color Fluid Appearance Fluid pH Fluid RBC Fld Tot Nucleated Cell Fluid Polynuclear WBCs Fluid Mononuclear WBCs Fluid Eosinophils Fluid Other Cells Body Fluid Clot Fluid Total Protein Fluid LDH Nasal Screen MRSA (PCR) COVID-19 PCR 02/17/20 02/17/20 02/17/20 06:00 06:00 06:00 WBC RBC Hgb Hct MCV MCH MCHC RDW Plt Count Neut % (Auto) Lymph % (Auto) [place] % (Auto) Eos % (Auto) Baso % (Auto) Neut # (Auto) Lymph # (Auto) [place] # (Auto) Eos # (Auto) Baso # (Auto) PT INR APTT ABG pH ABG pCO2 ABG pO2 ABG HCO3 ABG Total CO2 ABG O2 Saturation ABG Base Excess FiO2 Sodium Potassium Chloride Carbon Dioxide BUN Creatinine Estimated GFR BUN/Creatinine Ratio Glucose Lactate 2.5 H Calcium Magnesium Total Bilirubin AST ALT Alkaline Phosphatase Total Creatine Kinase CK-MB (CK-2) CK-MB (CK-2) Rel Index Troponin I NT-Pro-B Natriuret Pep Total Protein Albumin Globulin Albumin/Globulin Ratio Triglycerides 98 Cholesterol 140 LDL Cholesterol, Calc 86 HDL Cholesterol 34 L Lipase Procalcitonin < 0.05 Urine RBC Urine WBC Urine Bacteria Ur Culture Indicated? Fluid Color Fluid Appearance Fluid pH Fluid RBC Fld Tot Nucleated Cell Fluid Polynuclear WBCs Fluid Mononuclear WBCs Fluid Eosinophils Fluid Other Cells Body Fluid Clot Fluid Total Protein Fluid LDH Nasal Screen MRSA (PCR) COVID-19 PCR 02/17/20 02/17/20 02/17/20 06:00 08:36 13:04 WBC RBC Hgb Hct MCV MCH MCHC RDW Plt Count Neut % (Auto) Lymph % (Auto) [place] % (Auto) Eos % (Auto) Baso % (Auto) Neut # (Auto) Lymph # (Auto) [place] # (Auto) Eos # (Auto) Baso # (Auto) PT INR APTT ABG pH ABG pCO2 ABG pO2 ABG HCO3 ABG Total CO2 ABG O2 Saturation ABG Base Excess FiO2 Sodium Potassium Chloride Carbon Dioxide BUN Creatinine Estimated GFR BUN/Creatinine Ratio Glucose Lactate 1.7 Calcium Magnesium Total Bilirubin AST ALT Alkaline Phosphatase Total Creatine Kinase 45 L CK-MB (CK-2) TNP CK-MB (CK-2) Rel Index TNP Troponin I 0.017 NT-Pro-B Natriuret Pep Total Protein Albumin Globulin Albumin/Globulin Ratio Triglycerides Cholesterol LDL Cholesterol, Calc HDL Cholesterol Lipase Procalcitonin Urine RBC Urine WBC Urine Bacteria Ur Culture Indicated? Fluid Color Yellow Fluid Appearance Slightly cloudy Fluid pH Fluid RBC 8501 Fld Tot Nucleated Cell 497 Fluid Polynuclear WBCs 1 Fluid Mononuclear WBCs 24 Fluid Eosinophils 0 Fluid Other Cells 75 Body Fluid Clot No clots present Fluid Total Protein Fluid LDH Nasal Screen MRSA (PCR) COVID-19 PCR 02/17/20 02/17/20 13:04 13:04 WBC RBC Hgb Hct MCV MCH MCHC RDW Plt Count Neut % (Auto) Lymph % (Auto) [place] % (Auto) Eos % (Auto) Baso % (Auto) Neut # (Auto) Lymph # (Auto) [place] # (Auto) Eos # (Auto) Baso # (Auto) PT INR APTT ABG pH ABG pCO2 ABG pO2 ABG HCO3 ABG Total CO2 ABG O2 Saturation ABG Base Excess FiO2 Sodium Potassium Chloride Carbon Dioxide BUN Creatinine Estimated GFR BUN/Creatinine Ratio Glucose Lactate Calcium Magnesium Total Bilirubin AST ALT Alkaline Phosphatase Total Creatine Kinase CK-MB (CK-2) CK-MB (CK-2) Rel Index Troponin I NT-Pro-B Natriuret Pep Total Protein Albumin Globulin Albumin/Globulin Ratio Triglycerides Cholesterol LDL Cholesterol, Calc HDL Cholesterol Lipase Procalcitonin Urine RBC Urine WBC Urine Bacteria Ur Culture Indicated? Fluid Color Fluid Appearance Fluid pH 7.0 Fluid RBC Fld Tot Nucleated Cell Fluid Polynuclear WBCs Fluid Mononuclear WBCs Fluid Eosinophils Fluid Other Cells Body Fluid Clot Fluid Total Protein 4.6 Fluid LDH 1215 Nasal Screen MRSA (PCR) COVID-19 PCR PFSH Medical History Atrial flutter with rapid ventricular response (~05/25/18) Essential hypertension (01/26/15) Hyperlipidemia (~2009) Hypertension (~2009) shelter current use of anticoagulant therapy Mixed hyperlipidemia (01/26/15) Right inguinal hernia Surgical History H/O left inguinal hernia repair H/O right inguinal hernia repair History of colonoscopy S/P hernia repair Family History Father No problems noted. Mother No problems noted. Social History marital status: household members: spouse Smoking Status: Current every day smoker Tobacco: How many years used: 60 quit status: considering quitting (I tried quitting but I turn into a monster, so i started again Given smoking cessation handout.) second hand exposure: No alcohol intake: current substance use type: does not use Assessment & Plan Assessment & Plan narrative: Juan David Boyd is an 79-year-old male with a past medical history significant for hypertension, hyperlipidemia, paroxysmal atrial fibrillation, and tobacco dependence who presented to the ED for progressive generalized weakness over the past month with rather significant shortness of breath over the past few days. 1. Acute hypoxemic respiratory failure, present on admission. Resolving. -Patient presented with worsening shortness of breath over last several days and was found to have large left-sided loculated pleural effusion. -COVID-19 negative. -Continue respiratory therapy evaluation treatment. Continue supplemental oxygen as necessary to maintain oxygen saturation 88-92%. Patient may require home oxygen. Continue albuterol nebs every 2 hours while awake. Continue to treat possible pneumonia as below. 2. Widely metastatic carcinoma of unknown primary, chronic, present on admission. Active. -CT chest, abdomen and pelvis with contrast demonstrated large left pleural effusion with compressive atelectasis, left renal mass concerning for renal cell carcinoma, left periaortic retroperitoneal lymphadenopathy concerning for metastatic disease, 1.5 centimeter nodule in the right upper lobe concerning for bronchogenic carcinoma. PE ruled out. -Performed left thoracentesis with pleural fluid studies including culture pending and cytology sent off and pending. Patient developed tiny left apical pneumothorax and consulted general surgery, Dr. Walden, who recommends continue surveillance with chest x-ray. -Discussed case with on-call oncologist, Dr. Meeks, who recommends outpatient evaluation once pleural studies resulted. Patient reports that he would not want aggressive medical intervention including: chemotherapy, radiation or surgical intervention. Discussed hospice and have placed hospice referral. 3. Large left-sided pleural effusion with possible superimposed bacterial pneumonia, acuity unclear, present on admission. Active. -COVID-19 negative. -CT chest, abdomen and pelvis with contrast demonstrated large left pleural effusion with compressive atelectasis, left renal mass concerning for renal cell carcinoma, left periaortic retroperitoneal lymphadenopathy concerning for metastatic disease, 1.5 centimeter nodule in the right upper lobe concerning for bronchogenic carcinoma. PE ruled out. -Initial WBC 13.9. WBC trending up to 16.1. Procalcitonin negative <0.05. Continue to monitor WBC daily. -Blood cultures x2 have no growth to date. -Received ceftriaxone 1 g IV x1 and azithromycin 500 mg IV x1 in ED. Continue ceftriaxone 2 g IV daily and azithromycin 500 mg daily x3 doses. -Performed left thoracentesis with pleural fluid studies including culture pending and cytology sent off and pending. Patient developed tiny left apical pneumothorax and consulted general surgery, Dr. Walden, who recommends continue surveillance with chest x-ray. Continue diuresis as below. 4. Acute congestive heart failure with preserved ejection fraction exacerbation, present on admission. Active. -Patient has moderate bilateral pitting edema of lower extremities and large left-sided pleural effusion likely due to metastatic carcinoma. -Received furosemide 40 mg IV x 1 ED and another dose of furosemide 40 mg PO x1 on floor. Continue furosemide 40 mg IV daily. -Echocardiogram demonstrated LV normal size, wall thickness is mildly increased, and systolic function is normal with EF 55-60%, no obvious focal wall motion abnormalities noted but poor endocardial definition reduces sensitivity, mild dyssynchronous contraction pattern, consistent with a conduction abnormality, diastolic parameters suggest a relaxation abnormality of the left ventricle, consistent with probable normal filling pressures, RV normal size with RVSP 23 mmHg plus the clinically estimated CVP which cannot be estimated, both atria are normal in size, moderate mitral annular calcification, posterior mitral valve leaflet is mild-moderately calcified with morderately reduced leaflet motion, no mitral valve stenosis, discrete nodular thickening of the right coronary cusp. There is mildly reduced leaflet mobility, no aortic valve stenosis, mild to moderate tricuspid regurgitation, ascending aorta is mildly enlarged and aortic arch is mildly enlarged. -Continue strict I&Os and daily weights. -Continue low-sodium and 1.2 L fluid-restricted diet. 5. Paroxysmal atrial fibrillation, chronic, present on admission. Stable. -Patient previously on warfarin and was supratherapeutic so warfarin was held and never restarted. -Due to likely widely metastatic carcinoma of unknown primary and high risk of VTE with CHADS2 Vasc 4 plan to start Eliquis 5 mg twice daily. -Continue home sotalol 20 mg twice daily which may need to be decreased or held due to mild bradycardia. Continue to monitor closely on telemetry. 6. Tobacco dependence, chronic, present on admission. Stable. -Patient reports he smokes 1/3 pack day. -Counseled the patient extensively regarding smoking cessation Code status: Full code, surrogate decsion maker is patients spouse VTE prophylaxis: Enoxaparin, SCDs Disposition: Patient likely to discharge home in 1-2 days once adequately diuresed and oxygenation improving. Quality VTE Deep Vein Thrombosis/Pulmonary Embolism Present on Admission: No
--- NOTE | 2020-02-17 21:13 | P.CONS_ITS ---
History of Present Illness Consult details Date Patient Seen: 02/17/20 Time Patient Seen: 21:14 Chief complaint: trouble breathing, cant walk right Narrative: 79-year-old male with metastatic renal carcinoma seen in consultation for an iatrogenic left pneumothorax. He was admitted to the hospital last night for shortness of breath found to have a large left pleural effusion involving the entirety of the left chest cavity as well as a left renal mass. He was ta roseline today for ultrasound guided drainage of the left pleural effusion and it was noted on a CT chest post procedure he had a small apical pneumothorax. He is currently breathing quite well without distress saturating 93% without supplemental oxygen. Approximately 1.5 L of malignant effusion was drained from the chest today. He is actually breathing much better than he did at admission. Meds Home Medications and Allergies Home Medications Medication Instructions Recorded Confirmed Type sotalol 80 mg tablet See Rx Instructions PO BID tab 12/07/18 02/16/20 History Allergies Allergy/AdvReac Type Severity Reaction Status Date / Time venom-honey bee Allergy Severe swelling Verified 12/07/18 11:45 [bee venom (honey bee)] at side Review of Systems Review of Systems ROS: Yes other (Unable to obtain secondary to confusion) Exam Vital Signs (past 8 hours): - 02/17/20 16:00 02/17/20 19:38 02/17/20 19:40 Temperature 97.6 F 97.7 F Pulse Rate 56 L 62 Respiratory Rate 29 H 25 H Blood Pressure 125/58 L 115/63 Pulse Oximetry 93 02/17/20 19:41 Temperature Pulse Rate 68 Respiratory Rate 23 Blood Pressure Pulse Oximetry Oxygen Delivery Method Nasal Cannula Oxygen Flow Rate 2 Narrative Exam Narrative: Elderly man alert but confused no acute distress Chest mildly labored respirations Cardiac regular rate and rhythm Abdomen soft nontender nondistended Extremities are warm Objective Labs Result Diagrams: 02/17/20 06:00 02/17/20 06:00 Labs: Laboratory Results - last 24 hr 02/16/20 02/17/20 02/17/20 23:50 02:50 02:56 WBC RBC Hgb Hct MCV MCH MCHC RDW Plt Count Neut % (Auto) Lymph % (Auto) [place] % (Auto) Eos % (Auto) Baso % (Auto) Neut # (Auto) Lymph # (Auto) [place] # (Auto) Eos # (Auto) Baso # (Auto) PT INR ABG pH 7.47 H ABG pCO2 38.7 ABG pO2 71 L ABG HCO3 29 H ABG Total CO2 30 ABG O2 Saturation 95 ABG Base Excess 5.0 H FiO2 80 Sodium Potassium Chloride Carbon Dioxide BUN Creatinine Estimated GFR BUN/Creatinine Ratio Glucose Lactate Calcium Magnesium Total Bilirubin AST ALT Alkaline Phosphatase Total Creatine Kinase 50 L CK-MB (CK-2) TNP CK-MB (CK-2) Rel Index TNP Troponin I 0.015 Total Protein Albumin Globulin Albumin/Globulin Ratio Triglycerides Cholesterol LDL Cholesterol, Calc HDL Cholesterol Procalcitonin Urine RBC 0-1/hpf Urine WBC None seen Urine Bacteria None seen Ur Culture Indicated? Cult not indicated Fluid Color Fluid Appearance Fluid pH Fluid RBC Fld Tot Nucleated Cell Fluid Polynuclear WBCs Fluid Mononuclear WBCs Fluid Eosinophils Fluid Other Cells Body Fluid Clot Fluid Total Protein Fluid LDH Nasal Screen MRSA (PCR) 02/17/20 02/17/20 02/17/20 03:05 06:00 06:00 WBC 16.1 H RBC 3.59 L Hgb 10.2 L Hct 33.1 L MCV 92.1 MCH 28.5 MCHC 31.0 RDW 17.2 H Plt Count 298 Neut % (Auto) 79.3 H Lymph % (Auto) 7.3 L [place] % (Auto) 13.1 Eos % (Auto) 0.1 L Baso % (Auto) 0.2 Neut # (Auto) 66481 H Lymph # (Auto) 1200 [place] # (Auto) 2100 H Eos # (Auto) 0 Baso # (Auto) 0 PT 13.9 H INR 1.2 ABG pH ABG pCO2 ABG pO2 ABG HCO3 ABG Total CO2 ABG O2 Saturation ABG Base Excess FiO2 Sodium Potassium Chloride Carbon Dioxide BUN Creatinine Estimated GFR BUN/Creatinine Ratio Glucose Lactate Calcium Magnesium Total Bilirubin AST ALT Alkaline Phosphatase Total Creatine Kinase CK-MB (CK-2) CK-MB (CK-2) Rel Index Troponin I Total Protein Albumin Globulin Albumin/Globulin Ratio Triglycerides Cholesterol LDL Cholesterol, Calc HDL Cholesterol Procalcitonin Urine RBC Urine WBC Urine Bacteria Ur Culture Indicated? Fluid Color Fluid Appearance Fluid pH Fluid RBC Fld Tot Nucleated Cell Fluid Polynuclear WBCs Fluid Mononuclear WBCs Fluid Eosinophils Fluid Other Cells Body Fluid Clot Fluid Total Protein Fluid LDH Nasal Screen MRSA (PCR) Negative for mrsa 02/17/20 02/17/20 02/17/20 06:00 06:00 06:00 WBC RBC Hgb Hct MCV MCH MCHC RDW Plt Count Neut % (Auto) Lymph % (Auto) [place] % (Auto) Eos % (Auto) Baso % (Auto) Neut # (Auto) Lymph # (Auto) [place] # (Auto) Eos # (Auto) Baso # (Auto) PT INR ABG pH ABG pCO2 ABG pO2 ABG HCO3 ABG Total CO2 ABG O2 Saturation ABG Base Excess FiO2 Sodium 148 H Potassium 4.5 D Chloride 111 H Carbon Dioxide 35 H BUN 28 H Creatinine 1.07 Estimated GFR > 60.0 BUN/Creatinine Ratio 26.2 H Glucose 108 Lactate Calcium 8.7 Magnesium 2.4 H Total Bilirubin 0.4 AST 34 ALT 19 Alkaline Phosphatase 100 Total Creatine Kinase CK-MB (CK-2) CK-MB (CK-2) Rel Index Troponin I Total Protein 6.6 Albumin 3.0 L Globulin 3.6 Albumin/Globulin Ratio 0.8 L Triglycerides 98 Cholesterol 140 LDL Cholesterol, Calc 86 HDL Cholesterol 34 L Procalcitonin < 0.05 Urine RBC Urine WBC Urine Bacteria Ur Culture Indicated? Fluid Color Fluid Appearance Fluid pH Fluid RBC Fld Tot Nucleated Cell Fluid Polynuclear WBCs Fluid Mononuclear WBCs Fluid Eosinophils Fluid Other Cells Body Fluid Clot Fluid Total Protein Fluid LDH Nasal Screen MRSA (PCR) 02/17/20 02/17/20 02/17/20 06:00 06:00 08:36 WBC RBC Hgb Hct MCV MCH MCHC RDW Plt Count Neut % (Auto) Lymph % (Auto) [place] % (Auto) Eos % (Auto) Baso % (Auto) Neut # (Auto) Lymph # (Auto) [place] # (Auto) Eos # (Auto) Baso # (Auto) PT INR ABG pH ABG pCO2 ABG pO2 ABG HCO3 ABG Total CO2 ABG O2 Saturation ABG Base Excess FiO2 Sodium Potassium Chloride Carbon Dioxide BUN Creatinine Estimated GFR BUN/Creatinine Ratio Glucose Lactate 2.5 H 1.7 Calcium Magnesium Total Bilirubin AST ALT Alkaline Phosphatase Total Creatine Kinase 45 L CK-MB (CK-2) TNP CK-MB (CK-2) Rel Index TNP Troponin I 0.017 Total Protein Albumin Globulin Albumin/Globulin Ratio Triglycerides Cholesterol LDL Cholesterol, Calc HDL Cholesterol Procalcitonin Urine RBC Urine WBC Urine Bacteria Ur Culture Indicated? Fluid Color Fluid Appearance Fluid pH Fluid RBC Fld Tot Nucleated Cell Fluid Polynuclear WBCs Fluid Mononuclear WBCs Fluid Eosinophils Fluid Other Cells Body Fluid Clot Fluid Total Protein Fluid LDH Nasal Screen MRSA (PCR) 02/17/20 02/17/20 02/17/20 13:04 13:04 13:04 WBC RBC Hgb Hct MCV MCH MCHC RDW Plt Count Neut % (Auto) Lymph % (Auto) [place] % (Auto) Eos % (Auto) Baso % (Auto) Neut # (Auto) Lymph # (Auto) [place] # (Auto) Eos # (Auto) Baso # (Auto) PT INR ABG pH ABG pCO2 ABG pO2 ABG HCO3 ABG Total CO2 ABG O2 Saturation ABG Base Excess FiO2 Sodium Potassium Chloride Carbon Dioxide BUN Creatinine Estimated GFR BUN/Creatinine Ratio Glucose Lactate Calcium Magnesium Total Bilirubin AST ALT Alkaline Phosphatase Total Creatine Kinase CK-MB (CK-2) CK-MB (CK-2) Rel Index Troponin I Total Protein Albumin Globulin Albumin/Globulin Ratio Triglycerides Cholesterol LDL Cholesterol, Calc HDL Cholesterol Procalcitonin Urine RBC Urine WBC Urine Bacteria Ur Culture Indicated? Fluid Color Yellow Fluid Appearance Slightly cloudy Fluid pH 7.0 Fluid RBC 8501 Fld Tot Nucleated Cell 497 Fluid Polynuclear WBCs 1 Fluid Mononuclear WBCs 24 Fluid Eosinophils 0 Fluid Other Cells 75 Body Fluid Clot No clots present Fluid Total Protein 4.6 Fluid LDH 1215 Nasal Screen MRSA (PCR) Assessment & Plan Assessment & Plan narrative: 79-year-old male with malignant left pleural effusion an iatrogenic small apical pneumothorax following pleurocentesis. CT chest reviewed demonstrates a left fluid filled chest a very small apical pneumothorax. His left lung is minimally functioning secondary to malignant pleural effusion not the small pneumothorax. His respiratory status is currently stable. Recommendations -no chest tube indicated at this time. If he were to need a chest tube, a PleurX catheter placed by thoracic surgery would allow for palliative drainage of his pleural effusions as he transitions to hospice -repeat chest x-ray in a.m.
[2020-02-18] VITALS (8 sets, daily range): BP systolic 118–146; BP diastolic 63–72; PULSE 56–75; RESP 16–32; TEMP 36.4–37.2; O2SAT 90–96
[2020-02-18] MEDS: AZITHROMYCIN 250 MG TABLET 500 MG PO ×2 (00:04→13:25)
[2020-02-18 04:56] LABS: Add Manual Diff / Slide Review NO; Basophils Absolute Auto 0 /uL (0-100); Basophils Percent Auto 0.2 % (0-2); Eosinophils Absolute Auto 0 /uL (0-450); Hematocrit 31.3 % (41-53); Hemoglobin 9.7 g/dL (13.5-17.5); Lymphocytes Absolute Auto 1300 /uL (1100-4500); Lymphocytes Percent Auto 9.8 % (25-40); Mean Corpuscular HGB Conc 31.2 % (30-36); Mean Corpuscular Hemoglobin 28.7 PG (26-34); Mean Corpuscular Volume 92.2 fL (80-100); Monocytes Absolute Auto 1700 /uL (0-900); Monocytes Percent Auto 12.3 % (3-14); Neutrophils Absolute Auto 10600 /uL (1500-7000); Neutrophils Percent Auto 77.7 % (50-75); Platelet Count 265 X10^3/uL (150-400); Red Blood Cell Count 3.39 X10^6/uL (4.5-5.9); Red Cell Distribution Width 17.3 % (11.6-14.8); White Blood Cell Count 13.6 X10^3/uL (4.5-11.0)
[2020-02-18 05:03] LABS: Alanine Aminotransferase 15 IU/L (<50); Albumin 2.7 g/dL (3.5-5.0); Albumin Globulin Ratio 0.9 (1.0-2.8); Alkaline Phosphatase 87 U/L (38-126); Aspartate Aminotransferase 48 IU/L (17-59); BUN Creatinine Ratio 30.5 (6-22); Bilirubin Total 0.4 mg/dL (0.2-1.3); Bilirubin Unconjugated 0.3 mg/dL (0.0-1.1); Blood Urea Nitrogen 29 mg/dL (9-20); Calcium 8.4 mg/dL (8.4-10.2); Carbon Dioxide 36 mmol/L (22-32); Chloride 109 mmol/L (98-107); Estimated Glomerular Filt Rate > 60.0 mL/min (>60); Globulin 3.1 g/dL (1.7-4.1); Glucose 110 mg/dL (80-110); HEMOLYSIS < 15 (0-50); Magnesium 2.3 mg/dL (1.6-2.3); Potassium 3.9 mmol/L (3.4-5.1); Sodium 145 mmol/L (137-145); Total Protein 5.8 g/dL (6.3-8.2)
--- NOTE | 2020-02-18 08:27 | DI.RAD.S_ITS ---
PROCEDURE: XR CHEST 1V INDICATIONS: tiny pneumothorax surveillance TECHNIQUE: One view of the chest was acquired. COMPARISON: [facility], CT, CT CHEST WO CON, 02/17/2020, 12:42. [facility], CR, XR CHEST 1V, 02/17/2020, 14:10. FINDINGS: Surgical changes and devices: None. Lungs and pleura: Unchanged appearance of small left apical pneumothorax, near complete opacification of the left lung, since yesterday. No changes in the right lung identified. Mediastinum: Cardiac silhouette and mediastinal contours are stable. Bones and chest wall: Scoliosis and discogenic changes. IMPRESSION: Overall, no interval change since yesterday. Redemonstrated small left apical pneumothorax Dictated by: Rober Piña M.D. on 02/18/2020 at 9:44 Approved by: Rober Piña M.D. on 02/18/2020 at 9:46
[2020-02-18 08:44] LABS: Lactate Dehydrogenase 791 U/L (313-618)
[2020-02-18] MEDS: FUROSEMIDE 40 MG/4 ML VIAL IV (10:07)
[2020-02-18] MEDS: CEFTRIAXONE 2 GM/50 ML FROZ.PIGGY IV (10:07)
[2020-02-18] MEDS: APIXABAN 5 MG TABLET PO (10:07)
[2020-02-18] MEDS: SODIUM CHLORIDE 0.9% FLUSH 10 ML IV (10:08)
[2020-02-18] MEDS: ACETAMINOPHEN 325 MG TABLET 650 MG PO (10:08)
[2020-02-18] MEDS: ASPIRIN EC 81 MG TABLET PO (10:08)
--- NOTE | 2020-02-18 10:17 | PC.NURSE ---
Addendum entered by Rula Curtis R.N. 02/18/20 11:11: incont of large amount fyellow urine following iv lasix dose Original Note: pt able to be weaned from 02 as he reports not using oxygen at home his room air spo2 has ranged from 89-93% during morning hours - he ambulated to br with assist of one person and use of gait belt and fww- large bm jat this time- took 100% of am meal and adhering to po fluid restriction- noted to have 2-3 + pitting edema bilat lower extremities R>L
--- NOTE | 2020-02-18 11:45 | PT.IPTN ---
Current Diagnoses Acute respiratory failure with hypoxia (02/16/20) Physical Therapy Treatment Note M2 PT-IP Current Condition Start: 02/17/20 16:56 Freq: NEEDED Status: Active Protocol: Document 02/17/20 16:12 AB (Rec: 02/17/20 17:13 AB [id number]) Physical Therapy Current Condition Current Condition Evaluation Date 02/17/20 Treatment Diagnosis pleural effusion s/p thoracocentesis; difficulty in walking Onset Date 02/16/20 Precautions Other Precautions O2 sat M3 PT-IP Subjective Start: 02/17/20 16:56 Freq: NEEDED Status: Active Protocol: Document 02/18/20 11:30 KS (Rec: 02/18/20 14:31 KS [id number]) Subjective Physical Therapy Visit Type Type Treatment Note Visit Start Time 11:30 Visit Stop Time 11:45 Total Visit Minutes 15 Number of PRODUCE BUYER Visits 1 Physical Therapy Visit Comments Patient Comments pt is agreeable to do PT. Pts present during treatment. M4 PT-IP Mobility and Gait Start: 02/17/20 16:56 Freq: NEEDED Status: Active Protocol: Document 02/18/20 11:30 KS (Rec: 02/18/20 14:31 KS [id number]) PT-Bed Mobility Assessment Scooting Scooting to Edge of Bed Contact Guard Assistance PT-Transfer Assessment Sit to and From Stand Sit to and from Stand Contact Guard Assistance,1 Person Assistance,Use of Upper Extremities Equipment Transfer Assistive Device Gait Belt,Front Wheeled Walker Orthotic/Prosthetic Devices or Brace: No Transfers Transfer Destination Chair Transfer Technique pt amb w/ FWW Transfer Ability Level of Assist Contact Guard Assistance, Minimal Assistance,1 Person Assistance,Use of Upper Extremities Comments Mobility Comments Pt in chair upon arrival from therapy w/ in room. O2 94 % on RA. Pt CGA for scooting to edge of chair and CGA w/ cues for sequencing and hand placement for sit<>stand w/ FWW. Pt then ambulated ~15 ft around room w/ FWW and CGA w/ cues to tack picker feet, pt had shuffling gait d/t weakness. O2 >90% on RA throughout treatment. Pt left in chair w/ all needs in reach. Gait Assessment Gait Gait Assistance Required: Contact Guard Assist,1 Person Assist Distance (Feet) 15 Able to Maintain Weight Bearing Status Yes During Gait Assistive Devices Assistive Device Gait Belt,Front Wheeled Walker Orthotic/Prosthetic Devices or Brace: No Gait Deviations General Gait Pattern Antalgic,Decreased Stride Length,Decreased Feet Clearance,Flexed Trunk,Step-to Gait Factors Limiting Gait Function Factors Limiting Gait Function Decreased Activity Tolerance, Decreased Strength,Poor Balance,Poor Safety Awareness, Respiratory Distress Comments Gait Comments Pt ambulated ~15 ft w/ FWW and shuffling gait/decreased stride length and foot clearances. O2 >90%. Stair Climbing Assessment Comments Stair Climbing Comments Not assessed, pts stated she does not was stair training prior to d/c. PT-Balance Assessment Sitting Balance and Reactions Static Sitting Balance Ability Good Dynamic Sitting Balance Ability Fair Standing Balance and Reactions Static Standing Balance Ability Fair Dynamic Standing Balance Ability Fair Device Used FWW M5 PT-IP Objective Assessments Start: 02/17/20 16:56 Freq: NEEDED Status: Active Protocol: Document 02/17/20 16:12 AB (Rec: 02/17/20 17:13 AB [id number]) Orientation Orientation/Cognition Level of Alertness Alert Orientation Name,Place,Situation Language Function Ability Hard of Hearing Safety Awareness Decreased Safety Awareness Gross Range of Motion Lower Extremity ROM Assessment Within Functional Limits Strength Lower Extremity Strength Hip 4-/5 Knee 4-/5 Sensation Assessment Sensation Gross Sensation WNL Muscle Tone Muscle Tone WNL Yes M6 PT-IP Treatment Start: 02/17/20 16:56 Freq: NEEDED Status: Active Protocol: Document 02/18/20 11:30 KS (Rec: 02/18/20 14:31 KS [id number]) Physical Therapy Treatment Education Education Provided Safety Other Treatments Other Treatment Performed Discussed home environment and safety, encouraged caregiver training w/ pts son however pts refused stating that they are getting a cabulance to take pt home and dont feel she needs caregiver training. M7 PT-IP Assessment and Plan Start: 02/17/20 16:56 Freq: NEEDED Status: Active Protocol: Document 02/18/20 11:30 KS (Rec: 02/18/20 14:31 KS [email or web address]) PT Summary Assessment and Plan Potential Rehabilitation Potential Fair Status of Condition at Evaluation Evolving Summary Impairments ROM,Strength,Balance, Coordination,Cognition,Bed Mobility,Transfers,Gait, Activity Tolerance Assessment Summary Pt CGA for scooting and sit<> Stand w/ FWW w/ cues for sequencing and hand placement. Pt tolerated ~15 ft ambulation w/ FWW w/ O2 >90% on RA and decreased stride and foot clearance d/t weakness. Encouraged caregive training for bed mobility, ambulation and stair climbing w/ pts son however pts refused. Pt will require HHPT to improve strength and tolerance for activity. Goals Bed Mobility Goal Standby Assistance Transfer Goal Standby Assistance,Front Wheeled Walker Gait Goal Standby Assistance,Front Wheel Walker Gait Distance 150 Other Goals up/down 13 steps R rail SBA up/down 2 steps L rail SBA Days to Meet Goals 10 Frequency of Treatment Frequency Of Treatment Once a Day Treatment Plan Physical Therapy Treatment Plan Bed Mobility Training,Transfer Training,Gait Training, Therapeutic Exercise,Balance Retraining,Post Op Education, Discharge Planning,Hot or Cold Pack,Neuromuscular Re-ed, Coordination Retraining,Manual Therapy Recommendations To Nursing Amount of Assist Needed 1 Person Assist Discharge Recommendations PT Discharge Recommendations Home with 30/09 Assist,Home Health,SNF Rehab Other Discharge Recommendations depending on progress: home wiht 30/09 and HHPT vs SNF Transportation Needs at Discharge Wheelchair/Cabulance,Stretcher /Ambulance
[2020-02-18] MEDS: SOTALOL 80 MG TABLET 20 MG PO (12:21)
--- NOTE | 2020-02-18 12:53 | CM.DPNOTE ---
Dr. Henao requested I call [facility] for a ward on Eliquis 5 mg, 60 days BID. I spoke with Snehal and she said the out of pocket expense with pts. insurance would be $114.59. Caty Ayoub CM Asst.
--- NOTE | 2020-02-18 14:37 | P.DS_ITS ---
History of Present Illness History of Present Illness Date Patient Seen: 02/18/20 Chief complaint: trouble breathing, cant walk right Narrative: Written by Lala MCBRIDE: Juan David Boyd is a 79-year-old male with history of atrial fibrillation anticoagulated on warfarin who sees Palmira Vera of the cardiology clinic in [place] presented with shortness of breath, and generalized weakness. It is difficult to obtain a history from the patient as he is quite tangential, and will not necessarily answer the question that is asked of him. He states that he was told to go off of his warfarin because his INR was too high and mentions numbers being in the 4 and 5 range. He does not seem to know or be aware of being told that he needed to go back on it when it fell into therapeutic range. It is currently 1.2. Review of Palmira Vera's notes indicated that he had a visit in October of this year where he was on low-dose sotalol and warfarin and at that time did not appear to be wanting to take him off of warfarin and in fact her note states that he would be on lifelong anticoagulation. He states that he was at [facility] at the same time his was there and that they had brought a bunch of tests on him. It is not clear to me as to what his d iagnosis for presenting symptoms were that landed him in the hospital. Per Palmira Vera's note he was admitted for acute respiratory failure. The patient shakes his head negative when asked about fever sweats or chills, headaches, nasal congestion, difficulty swallowing, shortness of breath, chest pain, nausea or vomiting, dysuria, diarrhea, or constipation. He did endorse having bilateral leg swelling and that he has a hard time getting his socks on. In the emergency department they did a chest x-ray which indicated a large left- sided pleural effusion. This was followed by CT of the chest which was negative for PE, again mentioning the left-sided large pleural effusion as well as a large hiatal hernia that extends into the lung base region. They also indicated and the infiltrate with left-sided consolidation. The CT scan also indicated concerns for a partially visualized left renal mass concerning for renal cell carcinoma, left periaortic retroperitoneal lymphadenopathy concerning for metastatic disease, a 1.5 centimeter nodule in the right upper lobe. Finding concerning for metastatic disease or primary bronchogenic carcinoma. Recommend follow-up CT scan of the chest in 3-6 months. Patient's temperature was 97.9?, blood pressure 135/76, heart rate 61, respiratory rate of 18, oxygen saturation of 94% on 2 L, he weighs 69 kg with a BMI of 22.4. WBC is elevated at 13.9, RBC 3.58, hemoglobin 10.3, hematocrit 32.9, platelet count of 320 he does have a left shift with 11,800 neutrophils, INR is 1.2, sodium 146, potassium 3.3, chloride 107, bicarb 33, BUN 33, creatinine 1.05, GFR is greater than 60, glucose 122, magnesium 2.6, total CK a his 50, his proBNP was 17 60, procalcitonin was negative at 0.05, and COVID-19 PCR was negative. Discharge Providers Provider Date of admission: 02/16/20 21:42 Discharge Date: 02/18/20 Primary care physician: REED Ivory Consults: 02/16/20 23:16 Consult to Respiratory Therapy Evaluate & Treat Comment: Hypoxia, CO2 retention Physician Instructions: Evaluate and treat 02/17/20 12:45 Consult to Physical Therapy Evaluate & Treat Comment: Physician Instructions: Evaluate and Treat Discharge provider: Kayleigh Henao DO Summary Hospital Course Discharge Diagnosis: 1. Acute hypoxemic respiratory failure, present on admission. Resolved. 2. Widely metastatic carcinoma of unknown primary, chronic, present on adm ission. Active. 3. Large left-sided malignant pleural effusion with probable superimposed bacterial pneumonia, acuity unclear, present on admission. Pneumonia resolving. 4. Acute congestive heart failure with preserved ejection fraction exacerbation, present on admission. Active. 5. Paroxysmal atrial fibrillation, chronic, present on admission. Stable. 6. Tobacco dependence, chronic, present on admission. Stable. Hospital Course: Juan David Boyd is an 79-year-old male with a past medical history significant for hypertension, hyperlipidemia, paroxysmal atrial fibrillation, and tobacco dependence who presented to the ED for progressive generalized weakness over the past month with rather significant shortness of breath over the past few days. 1. Acute hypoxemic respiratory failure, present on admission. Resolved. -Patient presented with worsening shortness of breath over last several days and was found to have large left-sided loculated pleural effusion. -COVID-19 negative. -Continued respiratory therapy evaluation treatment. Continue supplemental oxygen as necessary to maintain oxygen saturation 88-92%. Patient did not require home oxygen. Continued albuterol nebs every 2 hours while awake. Continued to treat possible pneumonia as below. 2. Widely metastatic carcinoma of unknown primary, chronic, present on ad mission. Active. -CT chest, abdomen and pelvis with contrast demonstrated large left pleural effusion with compressive atelectasis, left renal mass concerning for renal cell carcinoma, left periaortic retroperitoneal lymphadenopathy concerning for metastatic disease, 1.5 centimeter nodule in the right upper lobe concerning for bronchogenic carcinoma. PE ruled out. -Performed left thoracentesis with pleural fluid studies including culture pending and cytology sent off and pending. Patient developed tiny left apical pneumothorax and consulted general surgery, Dr. Walden, who recommends continue surveillance with chest x-ray. -Discussed case with on-call oncologist, Dr. Meeks, who recommended outpatient evaluation once pleural studies resulted. Patient did not not want aggressive medical intervention including: chemotherapy, radiation or surgical intervention. Discussed hospice and patient was discharged home with hospice to open within the next week. 3. Large left-sided malignant pleural effusion with probable superimposed bacterial pneumonia, acuity unclear, present on admission. Pneumonia resolving. -COVID-19 negative. -CT chest, abdomen and pelvis with contrast demonstrated large left pleural effusion with compressive atelectasis, left renal mass concerning for renal cell carcinoma, left periaortic retroperitoneal lymphadenopathy concerning for metastatic disease, 1.5 centimeter nodule in the right upper lobe concerning for bronchogenic carcinoma. PE ruled out. -Initial WBC 13.9. WBC peaked at 16.1 and now trending down 13.6. Procalcitonin negative <0.05. Continued to monitor WBC daily. -Blood cultures x2 have no growth to date. -Received ceftriaxone 1 g IV x1 and azithromycin 500 mg IV x1 in ED. Continued ceftriaxone 2 g IV daily and azithromycin 500 mg daily x3 doses. Patient discharged on cefdinir 300 mg twice daily for 5 additional days to complete 7 day total antibiotic treatment course. -Performed left thoracentesis with pleural fluid studies including culture pending and cytology sent off and pending. Patient has exudate of effusion by light's criteria consistent with malignant effusion which will likely to continue to recur and has dependent lung compression/atelectasis and essentially has no use of left lung. Patient developed small left apical pneumothorax and consulted general surgery, Dr. Walden, who recommended monitoring size of pneumothorax which was stable and required no further intervention. 4. Acute congestive heart failure with preserved ejection fraction exacerbation, present on admission. Active. -Patient has moderate bilateral pitting edema of lower extremities and large left-sided pleural effusion likely due to metastatic carcinoma. -Echocardiogram demonstrated LV normal size, wall thickness is mildly increased, and systolic function is normal with EF 55-60%, no obvious focal wall motion abnormalities noted but poor endocardial definition reduces sensitivity, mild dyssynchronous contraction pattern, consistent with a conduction abnormality, diastolic parameters suggest a relaxation abnormality of the left ventricle, consistent with probable normal filling pressures, RV normal size with RVSP 23 mmHg plus the clinically estimated CVP which cannot be estimated, both atria are normal in size, moderate mitral annular calcification, posterior mitral valve leaflet is mild-moderately calcified with morderately reduced leaflet motion, no mitral valve stenosis, discrete nodular thickening of the right coronary cusp. There is mildly reduced leaflet mobility, no aortic valve stenosis, mild to moderate tr icuspid regurgitation, ascending aorta is mildly enlarged and aortic arch is mildly enlarged. -Received furosemide 40 mg IV x 1 ED and another dose of furosemide 40 mg PO x1 on floor. Continued furosemide 40 mg IV daily. Patient discharged with furosemide 40 mg daily and potassium chloride 10 mEq daily. -Continued strict I&Os and daily weights. -Continued low-sodium and 1.2 L fluid-restricted diet. 5. Paroxysmal atrial fibrillation, chronic, present on admission. Stable. -Patient previously on warfarin and was supratherapeutic so warfarin was held and never restarted. -Due to likely widely metastatic carcinoma of unknown primary and high risk of VTE with CHADS2 Vasc 4 started and continued Eliquis 5 mg twice daily. -Discontinued home sotalol due to bradycardia with heart rate high 40s. -Continued to monitor electrolytes closely and replete as necessary. Goal potassium >4.0 and magnesium >2.0. 6. Tobacco dependence, chronic, present on admission. Stable. -Patient reports he smokes 1/3 pack day. -Counseled the patient extensively regarding smoking cessation and recommended indefinite cessation. -Continued nicotine patch as needed for nicotine withdrawal. Exam Vital Signs (past 8 hours): - 02/18/20 08:00 02/18/20 12:00 Temperature 97.7 F 97.5 F L Pulse Rate 56 L 75 Respiratory Rate 23 16 Blood Pressure 130/65 118/72 Pulse Oximetry 93 93 Oxygen Delivery Method Room Air Oxygen Flow Rate 0 Narrative Exam Narrative: General: Elderly male sitting in bedside chair and in no acute distress, appears chronically ill and frail, appropriately interactive. HEENT: Normocephalic, atraumatic. External ears without defect. Pupils equal, round, and reactive to light. Anicteric sclerae, moist conjunctivae, and no lid lag. Oropharynx free of erythema and cobble stoning with moist mucosa. Neck: Supple with full range of motion. No JVD. No lymphadenopathy or thyromegaly. Cardiovascular: Regular rhythm, bradycardic, without murmurs, rubs, or gallops appreciated. Pulmonary: Clear to auscultation in right lung field with no breath sounds in left lung white other than at apex. No crackles, wheezes, or rhonchi. Normal respiratory effort with no use of accessory muscles. Abdomen: Soft, bowel sounds present, nontender, nondistended. No hepatosplenomegaly or masses appreciated. Extremities: No clubbing or cyanosis. Mild pitting edema to to pretibial area bilaterally. Skin: Normal temperature, turgor, and texture; no rash, ulcers, or subcutaneous nodules appreciated. Neurological: Cranial nerves grossly intact. Psychiatric: Normal mood and affect. Alert and oriented to person, place, and time. Probable mild cognitive impairment with short-term memory recall deficit. Objective Labs Result Diagrams: 02/18/20 04:20 02/18/20 04:20 Labs: Laboratory Results - last 24 hr 02/17/20 02/17/20 02/18/20 06:00 06:00 04:20 WBC 13.6 H RBC 3.39 L Hgb 9.7 L Hct 31.3 L MCV 92.2 MCH 28.7 MCHC 31.2 RDW 17.3 H Plt Count 265 Neut % (Auto) 77.7 H Lymph % (Auto) 9.8 L [place] % (Auto) 12.3 Eos % (Auto) 0.0 L Baso % (Auto) 0.2 Neut # (Auto) 17968 H Lymph # (Auto) 1300 [place] # (Auto) 1700 H Eos # (Auto) 0 Baso # (Auto) 0 Sodium Potassium Chloride Carbon Dioxide BUN Creatinine Estimated GFR BUN/Creatinine Ratio Glucose Calcium Magnesium Total Bilirubin Conjugated Bilirubin Unconjugated Bilirubin AST ALT Alkaline Phosphatase Lactate Dehydrogenase 791 H Total Protein Albumin Globulin Albumin/Globulin Ratio Triglycerides 98 Cholesterol 140 LDL Cholesterol, Calc 86 HDL Cholesterol 34 L 02/18/20 04:20 WBC RBC Hgb Hct MCV MCH MCHC RDW Plt Count Neut % (Auto) Lymph % (Auto) [place] % (Auto) Eos % (Auto) Baso % (Auto) Neut # (Auto) Lymph # (Auto) [place] # (Auto) Eos # (Auto) Baso # (Auto) Sodium 145 Potassium 3.9 Chloride 109 H Carbon Dioxide 36 H BUN 29 H Creatinine 0.95 Estimated GFR > 60.0 BUN/Creatinine Ratio 30.5 H Glucose 110 Calcium 8.4 Magnesium 2.3 Total Bilirubin 0.4 Conjugated Bilirubin 0.0 Unconjugated Bilirubin 0.3 AST 48 ALT 15 Alkaline Phosphatase 87 Lactate Dehydrogenase Total Protein 5.8 L Albumin 2.7 L Globulin 3.1 Albumin/Globulin Ratio 0.9 L Triglycerides Cholesterol LDL Cholesterol, Calc HDL Cholesterol PFSH Medical History Atrial flutter with rapid ventricular response (~05/25/18) Essential hypertension (01/26/15) Hyperlipidemia (~2009) Hypertension (~2009) FPC current use of anticoagulant therapy Mixed hyperlipidemia (01/26/15) Right inguinal hernia Surgical History H/O left inguinal hernia repair H/O right inguinal hernia repair History of colonoscopy S/P hernia repair Family History Father No problems noted. Mother No problems noted. Social History marital status: household members: spouse Smoking Status: Current every day smoker Tobacco: How many years used: 60 quit status: considering quitting (I tried quitting but I turn into a monster, so i started again Given smoking cessation handout.) second hand exposure: No alcohol intake: current substance use type: does not use Discharge Plan Discharge Plan Patient Disposition: Hospice - Home Provider Discharge Comment: You are being discharged home with hospice to open in the near future. You have widespread cancer of unknown origin. You have significant amount of fluid on your left lung due to cancer and a some of this fluid was removed to possibly to possibly identify type of cancer and will take 5-7 days for results. You have decided not to pursue aggressive treatment with chemotherapy, radiation, or surgical intervention. Hospice is being arranged and focus is on symptomatic control. 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 You have been prescribed a blood thinner called Eliquis 5 mg twice daily to help prevent blood clots. You may take Tylenol as directed on the bottle and as needed for mild pain. Your sotalol has been discontinued as your heart rate has been low. You may call your PCP's office if you have symptoms develop such as pain that is not controlled with Tylenol and hospice has not yet started. You have been prescribed cefdinir 300 mg twice daily to finish treating possible pneumonia. Discharge orders & Medications Prescriptions: New Eliquis 5 mg Tablet 5 mg PO BID Qty: 60 RF: 0 furosemide 40 mg tablet 40 mg PO DAILY Qty: 30 RF: 0 potassium chloride 10 mEq capsule, extended release 10 meq PO DAILY Qty: 30 RF: 0 cefdinir 300 mg capsule 300 mg PO BID Qty: 10 RF: 0 Discontinued sotalol 80 mg tablet See Rx Instructions PO BID RF: 0 Follow up/Referrals: April Jaeger ARNP [Primary Care Provider] - Discharge Data Primary Care Provider: April Jaeger Quality VTE Deep Vein Thrombosis/Pulmonary Embolism Present on Admission: No
--- NOTE | 2020-02-18 14:47 | CM.DPNOTE ---
DC Note Worked on DCP throughout the day today, DC order in and patient would like to return home. Dr Henao and this CREDIT RATING CHECKER met w/spouse this morning to review goals of care and DCP options. Patient and spouse agree that patient should return home w/focus on comfort, home w/hospice. Patient states he will not want chemo, radiation even if it were offered. This CREDIT RATING CHECKER started Hospice referral yesterday, spouse Julia has been in contact w/them today. CHERELLE Nicholson working w/patient today, cg training conducted w/spouse. Julia is a bit overwhelmed seeming but explains she can take patient home w/her son Jesse P# [phone] and DIL to assist her throughout the w/e. Placed multiple calls today to [facility], spoke w/ Goldie who had no new information about when hospice could deliver hospital bed and/or f/u w/start of care (?) Spouse Julia explains to this CREDIT RATING CHECKER if she can get assist w/arranging cabulance transport, she has no addtl. needs from this CREDIT RATING CHECKER and can f/u w/ [facility] re DME and start of care. Placed call to [facility] P#[phone], scheduled cabulance for p/u [id number]. Spouse agreeable w/expected cost of $150. Updated spouse and son Jesse w/transport time. Plan: DC home w/family via cabulance w/ [facility] pending...delivery of DME and f/u for end of life, comfort management JW
--- NOTE | 2020-02-18 16:40 | PC.NURSE ---
1640- Patient discharged via cabulance to home. Patient IV removed and telemetry is off. Patient instructions sent home with cable repairer. Patient stable at time of discharge.
== END 2020-02-18 17:00 | disposition hospice, home (50) | DRG 843 ==
LOC: ED 17:55 → AC 21:43 → ICU 02-17 09:01 → AC 02-18 13:37 → ICU 02-18 13:37
PROVIDERS: Emergency Medicine; Internal Medicine; Admitting Provider Nurse Practitioner Family; Emergency Provider Emergency Medicine; PCP Nurse Practitioner; Referring Provider Emergency Medicine; Visit Provider Nurse Practitioner Family
DX: C80.1 Malignant (primary) neoplasm, unspecified (principal); J96.01 Acute respiratory failure with hypoxia; J15.9 Unspecified bacterial pneumonia; I50.33 Acute on chronic diastolic (congestive) heart failure; J98.11 Atelectasis; J95.811 Postprocedural pneumothorax; J91.0 Malignant pleural effusion; I48.0 Paroxysmal atrial fibrillation; Z79.01 Long term (current) use of anticoagulants; Z20.828 Contact with and (suspected) exposure to other viral communicable diseases; F17.200 Nicotine dependence, unspecified, uncomplicated
CPT/HCPCS: 32555; 36415; 36600; 71045; 71250; 71260; 80048; 80053; 80061; 80076; 81015; 82550; 82553; 82805; 83605; 83615; 83690; 83735; 83880; 83986; 84145; 84157; 84484; 85025; 85610; 85730; 87040; 87070; 87075; 87205; 87635; 87797; 89051; 93005; 93010; 93306; 94760; 94762; 97162; 97530; 99284; 99285; J0696; J1650; J1940; J3480; Q9967